=== PATIENT | female | born 2000 | race Caucasian/White ===

== ENCOUNTER 2021-06-21 15:38 | Outpatient (CLI) | payer OTHER, SELFPAY ==
--- NOTE | ~2021-06-21 | XR_ITS ---
EXAMINATION: XR chest 2V 06/21/2021 15:59 INDICATION: Cough and chest pain PROCEDURE: 2 view chest COMPARISON: 05/09/2019 FINDINGS: There are lingular infiltrates. The cardiomediastinal silhouette is within normal limits. There are no pleural effusions. There is no pneumothorax suspected. IMPRESSION: 1: Lingular infiltrates which may represent atelectasis or pneumonia. Reviewed, dictated and finalized at location A. E PRACTICAL
== END 2021-06-21 15:39 | disposition home or self-care (01) ==
LOC: CHSIMG 15:41
PROVIDERS: PCP Family Medicine; Visit Provider Family Medicine
DX: R05.9 Cough, unspecified (principal)
CPT/HCPCS: 71046

== ENCOUNTER 2022-07-15 09:48 | Outpatient (CLI) | payer OTHER, SELFPAY ==
--- NOTE | ~2022-07-15 | XR_ITS ---
EXAMINATION: XR abdomen obstructive series DATE: 07/15/2022 11:11 INDICATION: Generalized abdominal pain TECHNIQUE: Upright and supine views of the abdomen were obtained. COMPARISON: None. FINDINGS: The bowel gas pattern is nonspecific. No dilated loops of bowel or. There is no free intrap eritoneal gas. The visualized lung bases are clear. Asymmetric sacroiliitis is noted on the right.. IMPRESSION: 1. Nonobstructive bowel gas pattern Reviewed, dictated and finalized at location A. [employer]
[2022-07-15 10:30] LABS: Basophils Absolute Auto 0.04 K/mm3 (0.00-0.10); Basophils Percent Auto 0.4 % (0.0-1.0); Eosinophils Absolute Auto 0.06 K/mm3 (0.02-0.50); Eosinophils Percent Auto 0.7 % (1.0-6.0); Hemoglobin 15.2 g/dL (12.0-15.0); Immature Granulocyte Absolute 0.03 K/mm3 (0.00-0.00); Immature Granulocyte Percent A 0.3 % (0.0-0.0); Lymphocytes Absolute Auto 1.52 K/mm3 (1.10-4.50); Mean Corpuscular HGB Conc 35.3 g/dL (32.0-36.0); Mean Corpuscular Hemoglobin 30.6 pg (27.0-31.0); Mean Corpuscular Volume 86.7 fL (78.0-102.0); Mean Platelet Volume 11.9 fl (9.2-11.8); Monocytes Absolute Auto 0.28 K/mm3 (0.10-0.90); Monocytes Percent Auto 3.1 % (2.0-11.0); Neutrophils Percent Auto 78.5 % (50.0-70.0); Platelet Count Result 157 K/mm3 (150-420); Red Blood Count 4.96 M/mm3 (4.20-5.40); Red Cell Distribution Width 12.9 % (11.6-14.4)
[2022-07-15 10:36] LABS: Add Urine Microscopic? YES; Appearance Urine Clear (Clear); Bilirubin Urine Negative (Negative); Blood Urine 3+ (Negative); Color Urine Light Yellow (Yellow); Glucose Urine UA Negative (Negative); Ketones Urine Negative (Negative); Leukocyte Esterase Ur 2+ (Negative); Nitrate Urine Negative (Negative); Protein Urine Trace (Negative); Specific Grav Ur >= 1.030 (1.010-1.020); Urobilinogen Urine 0.2 mg/dL (0.2-1.0)
[2022-07-15 10:40] LABS: Pregnancy On Board Control Positive; Urine Pregnancy Test Negative
[2022-07-15 10:41] LABS: Occult Blood Negative (Negative)
[2022-07-15 10:44] LABS: Bacteria Urine 1+ /hpf; Squamous Epithelial Cell Urine Moderate /hpf (Few)
[2022-07-15 10:57] LABS: Alanine Aminotransferase 33 U/L (14-59); Albumin Level 4.5 g/dL (3.4-5.0); Alkaline Phosphatase 30 U/L (46-116); Amylase 76 U/L (25-115); Anion Gap 8 mmol/L (8-16); Aspartate Amino Transferase 20 U/L (15-37); Bilirubin,Total 0.5 mg/dL (0.00-1.00); Blood Urea Nitrogen 13 mg/dL (7-18); Calcium 9.2 mg/dL (8.5-10.1); Carbon Dioxide 28 mmol/L (21-32); Chloride 104 mmol/L (98-108); Estimated Glomerular Filt Rate > 60; Glucose 110 mg/dL (70-99); Lipase 94 U/L (73-393); Osmolality Calculated 291 mOsm/kg (285-295); Potassium 4.3 mmol/L (3.5-5.1); Sodium 140 mmol/L (136-145); Total Protein 7.6 g/dL (6.4-8.2)
[2022-07-15 11:10] LABS: Occult Blood Negative (Negative)
[2022-07-15 11:19] LABS: Occult Blood Negative (Negative)
[2022-07-19 17:17] LABS: Lactoferrin, Stool Negative (Negative)
[2022-07-19 17:17] LABS: Lactoferrin, Stool Negative (Negative)
[2022-07-20 04:58] LABS: Fecal Fat, Ql Normal (Normal)
[2022-07-20 04:58] LABS: Fecal Fat, Ql Normal (Normal)
[2022-07-20 16:45] LABS: Gliadin AB, IgG <1.0 U/mL (<15.0); TTG IGA AB <1.0 U/mL (<15.0)
[2022-07-20 22:54] LABS: ANCA Screen Negative (Negative); Myeloperoxidase Ab <1.0 AI (<1.0); Proteinase-3 Ab <1.0 AI (<1.0); S cerevisiae Ab (IgA) 4.5 U (<=20.0); S cerevisiae Ab (IgG) 13.2 U (<=20.0)
== END 2022-07-15 09:49 | disposition home or self-care (01) ==
LOC: CHSLAB 09:51
PROVIDERS: PCP Family Medicine; Visit Provider Family Medicine
DX: R10.9 Unspecified abdominal pain (principal)
CPT/HCPCS: 36415; 74019; 80053; 81001; 81025; 82150; 82272; 82705; 83516; 83630; 83690; 84376; 85025; 86036; 86255; 86671; 87045; 87177; 87209; 87269; 87272; 87324; 87427

== ENCOUNTER 2023-02-24 11:58 | Outpatient (CLI) | payer OTHER, SELFPAY ==
[2023-02-24 13:04] LABS: Basophils Absolute Auto 0.04 K/mm3 (0.00-0.10); Basophils Percent Auto 0.8 % (0.0-1.0); Eosinophils Absolute Auto 0.07 K/mm3 (0.02-0.50); Eosinophils Percent Auto 1.3 % (1.0-6.0); Hemoglobin 14.3 g/dL (12.0-15.0); Immature Granulocyte Absolute 0.02 K/mm3 (0.00-0.00); Immature Granulocyte Percent A 0.4 % (0.0-0.0); Lymphocytes Absolute Auto 1.62 K/mm3 (1.10-4.50); Lymphocytes Percent Auto 31.2 % (18.0-42.0); Mean Corpuscular HGB Conc 35.8 g/dL (32.0-36.0); Mean Corpuscular Hemoglobin 31.2 pg (27.0-31.0); Mean Corpuscular Volume 87.1 fL (78.0-102.0); Mean Platelet Volume 11.2 fl (9.2-11.8); Monocytes Absolute Auto 0.28 K/mm3 (0.10-0.90); Monocytes Percent Auto 5.4 % (2.0-11.0); Neutrophils Absolute Auto 3.2 K/mm3 (1.7-7.2); Neutrophils Percent Auto 60.9 % (50.0-70.0); Platelet Count Result 156 K/mm3 (150-420); Red Blood Count 4.59 M/mm3 (4.20-5.40); Red Cell Distribution Width 12.5 % (11.6-14.4); White Blood Count 5.2 K/mm3 (4.8-10.8)
[2023-02-24 13:43] LABS: Alanine Aminotransferase 32 U/L (14-59); Albumin Level 4.3 g/dL (3.4-5.0); Alkaline Phosphatase 25 U/L (46-116); Anion Gap 9 mmol/L (8-16); Aspartate Amino Transferase 14 U/L (15-37); Bilirubin,Total 0.6 mg/dL (0.00-1.00); Blood Urea Nitrogen 13 mg/dL (7-18); Calcium 9.1 mg/dL (8.5-10.1); Carbon Dioxide 28 mmol/L (21-32); Chloride 103 mmol/L (98-108); Estimated Glomerular Filt Rate > 60; Free T4 Free Thyroxine 0.92 ng/dL (0.76-1.46); Glucose 86 mg/dL (70-99); Osmolality Calculated 289 mOsm/kg (285-295); Potassium 4.1 mmol/L (3.5-5.1); Sodium 140 mmol/L (136-145); Thyroid Stimulating Hormone 1.64 uIU/mL (0.36-3.74); Total Protein 7.3 g/dL (6.4-8.2)
== END 2023-02-24 11:59 | disposition home or self-care (01) ==
LOC: CHSLAB 12:00
PROVIDERS: PCP Family Medicine; Visit Provider Nurse Practitioner Family
DX: R19.7 Diarrhea, unspecified (principal)
CPT/HCPCS: 36415; 80053; 84439; 84443; 85025

== ENCOUNTER 2023-02-25 09:50 | Outpatient (CLI) | payer OTHER, SELFPAY | END 2023-02-25 09:51 | disposition home or self-care (01) | PROVIDERS: PCP Family Medicine; Visit Provider Nurse Practitioner Family | DX: R19.7 Diarrhea, unspecified (principal) | CPT/HCPCS: 84376; 87045; 87177; 87209; 87324; 87427; 87449 ==

== ENCOUNTER 2023-08-28 11:42 | Outpatient (CLI) | payer OTHER, SELFPAY ==
[2023-08-28 12:00] LABS: Basophils Absolute Auto 0.06 K/mm3 (0.00-0.10); Basophils Percent Auto 1.1 % (0.0-1.0); Eosinophils Absolute Auto 0.11 K/mm3 (0.02-0.50); Hematocrit 42.5 % (35.0-49.0); Hemoglobin 14.5 g/dL (12.0-15.0); Immature Granulocyte Absolute 0.01 K/mm3 (0.00-0.00); Immature Granulocyte Percent A 0.2 % (0.0-0.0); Lymphocytes Absolute Auto 1.77 K/mm3 (1.10-4.50); Lymphocytes Percent Auto 31.8 % (18.0-42.0); Mean Corpuscular HGB Conc 34.1 g/dL (32.0-36.0); Mean Corpuscular Hemoglobin 29.7 pg (27.0-31.0); Mean Corpuscular Volume 87.1 fL (78.0-102.0); Monocytes Absolute Auto 0.32 K/mm3 (0.10-0.90); Monocytes Percent Auto 5.7 % (2.0-11.0); Neutrophils Absolute Auto 3.3 K/mm3 (1.7-7.2); Neutrophils Percent Auto 59.2 % (50.0-70.0); Platelet Count Result 167 K/mm3 (150-420); Red Blood Count 4.88 M/mm3 (4.20-5.40); Red Cell Distribution Width 12.9 % (11.6-14.4); White Blood Count 5.6 K/mm3 (4.8-10.8)
[2023-08-28 12:01] LABS: Appearance Urine Clear (Clear); Bilirubin Urine Negative (Negative); Blood Urine 3+ (Negative); Color Urine Light Yellow (Yellow); Glucose Urine UA Negative (Negative); Ketones Urine Negative (Negative); Leukocyte Esterase Ur Negative LEU/UL (Negative); Nitrate Urine Negative (Negative); Protein Urine Negative (Negative); Specific Grav Ur >= 1.030 (1.010-1.020); Urobilinogen Urine 0.2 mg/dL (0.2-1.0)
[2023-08-28 12:09] LABS: Add Urine Microscopic? YES; RBC Urine 0-2 /hpf (0-2); Squamous Epithelial Cell Urine Few /hpf (Few); WBC Urine None seen /hpf (0-3)
[2023-08-28 12:10] LABS: Bacteria Urine Trace /hpf
[2023-08-28 13:11] LABS: Alanine Aminotransferase 31 U/L (14-59); Albumin Level 4.1 g/dL (3.4-5.0); Alkaline Phosphatase 29 U/L (46-116); Amylase 71 U/L (25-115); Anion Gap 8 mmol/L (8-16); Aspartate Amino Transferase 13 U/L (15-37); Bilirubin,Total 0.4 mg/dL (0.00-1.00); Blood Urea Nitrogen 11 mg/dL (7-18); Calcium 9.3 mg/dL (8.5-10.1); Carbon Dioxide 29 mmol/L (21-32); Chloride 104 mmol/L (98-108); Estimated Glomerular Filt Rate > 60; Glucose 89 mg/dL (70-99); Osmolality Calculated 290 mOsm/kg (285-295); Potassium 4.3 mmol/L (3.5-5.1); Sodium 141 mmol/L (136-145); Total Protein 7.3 g/dL (6.4-8.2)
== END 2023-08-28 11:43 | disposition home or self-care (01) ==
LOC: CHSLAB 11:45
PROVIDERS: PCP Family Medicine; Visit Provider Family Medicine
DX: R10.11 Right upper quadrant pain (principal); R19.7 Diarrhea, unspecified
CPT/HCPCS: 36415; 80053; 81001; 82150; 85025; 87493

== ENCOUNTER 2023-08-29 10:20 | Outpatient (CLI) | payer OTHER, SELFPAY ==
[2023-08-29 11:24] LABS: Toxigenic C. Diff NEGATIVE (NEGATIVE)
== END 2023-08-29 10:21 | disposition home or self-care (01) ==
PROVIDERS: PCP Family Medicine; Visit Provider Family Medicine
DX: R10.11 Right upper quadrant pain (principal); R19.7 Diarrhea, unspecified
CPT/HCPCS: 87493

== ENCOUNTER 2025-02-08 09:34 | Outpatient (RCR) | payer BC, MEDICAID, SELFPAY ==
[2025-02-08 10:09] VITALS: BP 147/85; PULSE 86
== END 2025-03-27 13:32 | disposition other institution (70) ==
LOC: ANHOBOP 09:34
PROVIDERS: PCP Family Medicine; Visit Provider Obstetrics & Gynecology
DX: O36.8130 Decreased fetal movements, third trimester, not applicable or unspecified (principal); Z3A.35 35 weeks gestation of pregnancy
CPT/HCPCS: 59025

== ENCOUNTER 2025-02-13 10:51 | Outpatient (CLI) | payer BC, MEDICAID, SELFPAY ==
[2025-02-13] VITALS (16 sets, daily range): BP systolic 128–146; BP diastolic 71–80; PULSE 81–88; O2SAT 98–100
--- OUTSIDE RECORDS SUMMARY | 2025-02-13 11:25 | XMS_ITS | Continuity of Care Document ---
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 Plan of Treatment Reminders Order Date Submit Date Provider Last Modified By Organization Details Last Modified Time Details Appointments U/S OB GROWTH 2024 09:30A M ULTRASOUND Not available Not available Not available OB ROUTINE 2024 10:00A Corina WASHBURN MD Not available Not available Not available INDUCTI ON 2024 12:01A Corina TEJEDA MD Not available Not available Not available Lab None recorde d. Referral None recorde d. Procedures None recorde d. Surgeries None recorde d. Imaging US, obstetr ic, follow- up 2024 025 [email or web address] [place], [address], [place], [address], 02/13/2025 11:19:51 Medication Orders None recorde d. Patient TargetsNo targets recorded. Patient InstructionsNo instructions recorded. Reason for Referral None Reported. Results Created Date Observation Date Name Description Value Unit Range Abnormal Flag Note LastModifiedBy Organization Detail LastModifiedTime 10/10/1910/09/2024 , rashid akbar No observ ation record ed. [facility] (Radiology) [address], [place], [address], 10/09/2024 17:22:59 10/30/19 25 10/29/2024 US, obste tric, 2nd or 3rd trime ster No observ ation record ed. [facility] [address], [place], [address], 10/29/2024 14:13:54 10/30/19 25 10/29/2024 US, obste tric, 2nd or 3rd trime ster No observ ation record ed. [email or web address], [place], [address], 10/31/2024 20:03:53 11/20/19 25 11/19/2024 US, obste tric, follo w-up No observ ation record ed. [address] [place] [address] [address], [place], [address], 11/19/2024 14:47:04 11/20/19 25 11/19/2024 US, obste tric, follo w-up No observ ation record ed. BAM [address], [place], [address], 12/04/2024 09:14:42 12/18/19 25 12/17/2024 US, obste tric, follo w-up No observ ation record ed. [email or web address] [place] [address], [place], [address], 12/19/2024 17:30:07 12/18/19 25 12/17/2024 US, obste tric, follo w-up No observ ation record ed. [email or web address] [address], [place], [address], 12/26/2024 12:13:51 12/31/19 25 12/30/2024 US, obste tric, limit ed No observ ation record ed. [email or web address] [place] [address], [place], [address], 12/30/2024 18:41:24 12/31/19 25 12/30/2024 US, obste tric, follo w-up No observ ation record ed. [email or web address] [address], [place], [address], 01/06/2025 18:01:25 01/14/20 25 01/13/2025 US, obste tric, follo w-up No observ ation record ed. [email or web address] [place] [address], [place], [address], 01/13/2025 17:53:49 01/14/2001/13/2025 US, obste tric, follo w-up No observ ation record ed. [email or web address] [address], [place], [address], 01/16/2025 10:30:30 02/09/20 25 02/08/2025 imagi ng/di agnos tic resul t No observ ation record ed. [facility] [address], [place], [address], 02/09/2025 18:44:19 02/14/20 US, obste tric, follo w-up No observ ation record ed. [email or web address] [place] [address], [place], [address], 02/13/2025 11:15:03 02/14/2002/13/2025 US, obste tric, follo w-up No observ ation record ed. [email or web address], [place], [address], 02/13/2025 11:19:49 Result Notes None recorded. Problems Name Problem SNOMED Code Status Onset Date Resolution Date Notes Provider Name and Address Organization Details Recorded Time Past pregnanc y history of pre-ecla mpsia 63465376675 9100 Active without severe features, delivered at 37 weeks; ASA ppx URSULA TEJEDA MD [address], [place], [address], [place] [facility] 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 5 20:03:12 Bicornua te uterus 33283569 Active serial growth Uyen Jerry [facility], [facility] 5 20:03:18 Bicornua te uterus 08206643 Active serial growth Uyen Jerry [facility], [facility] 5 20:03:19 Pregnanc y 11661106 Active 2024 Rayna Guan null, [facility] 5 15:20:50 Problem Notes None recorded. Medical Equipment None Reported. Allergies No known drug allergies Medications Name Sig Start Date Stop Date Status Note LastModified by Organization Details LastModified Time clobetasol 0.05 % topical cream APPLY A THIN LAYER TO THE AFFECTED AREA(S) BY TOPICAL ROUTE 2 TIMES PER DAY 2024 active Not Available Not Available Not Avai lable levothyroxi ne 25 mcg tablet TAKE 1 TABLET BY MOUTH ONCE DAILY DIRECTED active Not Available Not Available No t Available Aspirin Low Strength 81 mg chewable tablet 2 tablets every day by oral route. 2024 active Not Available Not Available Not Avai lable cephalexin 500 mg capsule TAKE 1 CAPSULE BY MOUTH THREE TIMES DAILY FOR 4 DAYS 10/01 completed Not Available Not Available Not Available active Not Available Not Avai lable Not Available Vitals Date Recorded Body weight Systolic And Diastolic Systolic And Diastolic Provider Name and Address Organization Details Last Updated DateTime 02/13/2025 648780.690 88 g 168/94 mm[Hg] 176/100 mm[Hg] Colleen Lambertt [facility] 02/13/2025 11:38:00 Social History Question Answer Notes LastModified by Organizat ion Details LastModified Time Tobacco Smoking Status Former Smoker Rayna Guan quique, [facility] 08/07/2024 11:00:58 Do You Have An Advance Directive? No [email or web address] Information not available 10/01/2024 Are You Blind Or Do You Have Difficulty Seeing? No Information not available 08/07/2024 What Is Your Level Of Caffeine Consumption? Occasional [email or web address] Information not available 10/01/2024 How Much Tobacco Do You Chew? None Information not available 10/01/2024 In The 14 Days Before Symptom Onset, Have You Had Close Contact With A Laboratory-confir med COVID-19 While That Case Was Ill? No Information not available 08/07/2024 In The 14 Days Before Symptom Onset, Have You Had Close Contact With A Person Who Is Under Investigation For COVID-19 While That Person Was Ill? No [email or web address] Information not available 08/07/2024 Have You Been To An Area Known To Be High Risk For COVID-19? No [email or web address] Information not available 08/07/2024 Are You Deaf Or Do You Have Serious Difficulty Hearing? No [email or web address] Information not available 08/07/2024 What Type Of Diet Are You Following? REGULAR [email or web address] Information not available 10/01/2024 What Is The Highest Grade Or Level Of School You Have Completed Or The Highest Degree You Have Received? PW20822-7 [email or web address] Information not available 10/01/2024 Are There Any Guns Present In Your Home? No [email or web address] Information not available 10/01/2024 Do You Use Protection During Sex? No [email or web address] Information not available 10/01/2024 Do You Use Your Seat Belt Or Car Seat Routinely? Yes [email or web address] Information not available 08/07/2024 Do You Have Smoke And Carbon Monoxide Detectors In Your Home? Yes [email or web address] Information not available 08/07/2024 How Much Tobacco Do You Smoke? No [email or web address] Information not available 10/01/2024 Do You Use Sunscreen Routinely? Yes [email or web address] Information not available 08/07/2024 Have You Used IV Drugs? No [email or web address] Information not available 10/01/2024 Do You Have Difficulty Walking Or Climbing Stairs? No [email or web address] Information not available 08/07/2024 Sex: Unknown Functional Status Question Answer Note LastModified by Organizat ion Details LastModified Time Do you use any illicit or recreational drugs? No [email or web address] Information not available 08/07/2024 What is your level of alcohol consumption? None [email or web address] Information not available 10/01/2024 Are you able to walk? YESWOREST [email or web address] Information not available 08/07/2024 Are you able to care for yourself? 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 No [email or web address] Information not available 08/07/2024 What is your exercise level? Moderate [email or web address] Information not available 10/01/2024 Mental Status Question Answer Note LastModified by Organization D etails LastModified Time Do you feel stressed (tense, restless, nervous, or anxious, or unable to sleep at night)? [id number] [email or web address] Information not available 10/01/2024 Family History Relationship Description Onset Age of this Age Resolved Age Notes LastModified by Organization Details LastModified Time Mother Hypertensive disorder [email or web address] Not available 2024 10:34:19 Maternal Grandfather Malignant neoplasm of lung [email or web address] Not available 01/28 10:23:00 Medical History Condition Response Allergies (Food, seasonal, environmental ) N Other N Drug/Latex Allergies/Reactions N Blood Transfusion N Breast Cancer N Dermatologic Disorders N Lung Disease N Defects or Inherited Disease N Breast Problem N Gestational Diabetes N Hematologic disorders N Anesthesia Complications N History of STI N Deep Vein Thrombosis N Polycystic ovary syndrome N Anxiety Disorder N Autoimmune disease N Arthritis N Polyps N Infertility N Acid Reflux (GERD) N History of abnormal pap N Cancer N Varicosities N Stroke N Neurologic/Epilepsy N Endometriosis N High Cholesterol N Fibromyalgia N Headaches N Kidney Disease N Heart Problems N Thyroid Problems N Kidney or Bladder Problems N GI Problems N Eating Disorder N Anemia N Art (IVF or FET) N Psychiatric Illness N Ovarian Cancer N Diabetes N Pulmonary (TB, Asthma) N Hepatitis/Liver Disease N No Past Medical History N Eczema N Urinary Tract Infection N Abuse/Domestic Violence N Asthma N Trauma/Violence N Depression/ depression N Heart Disease N Pre-Eclampsia N Hypertension N Osteoporosis N Thrombophilias N Gynecological History Statement/Question Response Abnormal Pap N Flow Moderate Date of LMP 06/04/2024 On BCP's at Conception? N N Was last menstrual period normal Y STIs/STDs Y HPV Vaccine Y Duration of Flow (days) 5 Current Control Method Age at First Child 20 Are cycles usually normal Y Frequency of Cycle (Q days) 20 Sexually Active? Y Menses Monthly Y Age of first menstrual cycle 15 Date of Last Pap Smear Sexual Problems? N LMP Approximate N Obstetrics History GPAL:G 2 P 1 0 0 1 Type Value Full Term 1 Living 1 Total 2 Past Encounters Encounter ID Performer Location Encounter Start Date Encounter Closed Date Diagnosis/Indication Diagnosis SNOMED-CT Code Diagnosis ICD10 Code Diagnosis Note [id number] URSULA TEJEDA MD [place] [address] [place] [address] 01/15/2025 11:50:37 01/15/2025 13:24:17 Hypertension complicating 6693751698 9102 O16.9 Large for gestation age fetus 830988131 O36.60X0 Gestation period, 32 weeks 0069711 Z3A.32 [id number] URSULA TEJEDA MD [place] [address] [place] [address] 01/22/2025 09:05:42 01/22/2025 14:47:33 Premature uterine contraction 548310733 O47.00 [id number] URSULA TEJEDA MD [place] [address] [place] [address] 02/05/2025 10:07:57 02/05/2025 10:52:28 Marginal insertion of umbilical cord 69827067 O43.129 Gestation period, 35 weeks 42163555 Z3A.35 [id number] Abimael Washburn MD [place] [address],[facility] [place] [address] 02/13/2025 10:22:28 02/13/2025 11:19:51 Anomaly of placenta 95038728 O43.103 O34.03 O99.283 Z3A.36 Health Concerns Section Related Observation LastModified by Organization Detai ls LastModified Time None Recorded Concern Status LastModified by Organization Details LastModified Time None Recorded Payers Encounter Date Sequence Insurance Name Policy Number Policy Le Covered Member ID Le Member ID Guarantor Name 02/13/2025 1 [place] [id number] [place] [id number] [place] 02/13/2025 2 [place] [facility] [place] [employer] [id number] [place] [facility] Episode Ob Episode Information Episode Created Date Number of Fetuses Patient Bloodtype Patient rh Status Prepregnancy Weight lbs Domestic Partner Domestic Partner Phone Father Name Video Camera Operator Status 09/04/19 25 1 O Positive 182 Myke Kindern ay OPEN Fetus Data First Name Last Name Admitted to NICU Weight (g) Sex Living Outcome Pediatric Complications Fetus ID Race Codes Race Delivery Type [id number] Problems Problem Notes Problem Name Start Date End Date Resolution Snomed Code Not e Hypothyroidism in 409253908 25mcg Levothyroxine repeat labs 4wks Marginal insertion of umbilical cord 31068588 serial hemalatha wth Bicornuate uterus 40349823 se rial growth Past history of pre-eclampsia 489687417266700 without sev ere features, delivered at 37 weeks; ASA ppx Kasi Calculation Initial Kasi Date Initial Exam Date Initial Exam Provider Initial Ultrasound Date Last Menstrual Period Date Ultra Sound Weeks Gestation 03/11/2025 09/04/2024 08/07/2024 06/04/2024 9 Eighteen To Twenty Week Kasi Update Ultra Sound Date Fundal Height At Umbil Quickening Date Ultra Sound Latest Weeks Gestation Final Kasi Confirmed By Final Kasi Confirmed Date Final Kasi Date Ultra Sound Latest Days Gestation 0 [email or web address] 09/04/2024 03/11/20 25 0 Pre-merlene Flowsheet Flowsheet Date 09/04/2024 Dasilva Score Blood Edema Fundus Height Fundus Units Glucose Ketones Leukocytes Nitrite Labor Signs Protein Cervic Dilation Cervic Effacement Cervic Station Type Weight in lbs Pre/Post Dialysis Refused Weight 182.297146479651 BP Diastolic BP Location Tested BP Systolic BP Type 82 L arm 139 sitting Fetus Heart Rate Present A Present Fetus Movement Comments Patient presents to [facility]. Hx of preeclampsia without severe features in her G1 , induced at 37 weeks. Discussed ASA ppx at previous visit. otherwise uncomplicated. No nausea or cramping. NT/NB wnl today, desires NIPT. Will draw today with new OB labs. RTC 4 weeks for routine care. Flowsheet Date 10/01/2024 Dasilva Score Blood Edema Fundus Height Fundus Units Glucose Ketones Leukocytes Nitrite Labor Signs Protein Cervic Dilation Cervic Effacement Cervic Station neg none Type Weight in lbs Pre/Post Dialysis Refused Weight 185.052114795407 BP Diastolic BP Location Tested BP Systolic BP Type 61 L arm 123 sitting Fetus Heart Rate Present A 150 Fetus Movement A No Comments Doing well, no cramping or b leeding. Noticed L axillary lump on 09/20, wasn't painful at first but now having pain with movement and palpation. No drainage or bleeding. No episodes previously similar to this. Exam consistent with accessory breast tissue, will order US to evaluate. LR female NIPT! Other labs wnl aside from elevated TSH for . Started on levothyroxine, repeat at next visit. Discussed anatomy US for next visit. RTC 3-4 weeks. Flowsheet Date 10/29/2024 Dasilva Score Blood Edema Fundus Height Fundus Units Glucose Ketones Leukocytes Nitrite Labor Signs Protein Cervic Dilation Cervic Effacement Cervic Station Type Weight in lbs Pre/Post Dialysis Refused BP Diastolic BP Location Tested BP Systolic BP Type Fetus Heart Rate Present Fetus Movement Comments Flowsheet Date 10/29/2024 Dasilva Score Blood Edema Fundus Height Fundus Units Glucose Ketones Leukocytes Nitrite Labor Signs Protein Cervic Dilation Cervic Effacement Cervic Station neg none Type Weight in lbs Pre/Post Dialysis Refused 187.111650455716 BP Diastolic BP Location Tested BP Systolic BP Type 72 L arm 122 sitting Fetus Heart Rate Present A Present Fetus Movement A No Comments Good movement. No blee ding or cramping. Mild back pain, discussed symptomatic relief. Anatomy today, EFW 97%. Marginal cord insertion, discussed with patient. Plan for q4week growth US. Anatomy incomplete, need 4CH, AA, RVOT. RTC 4 weeks. Flowsheet Date 11/19/2024 Dasilva Score Blood Edema Fundus Height Fundus Units Glucose Ketones Leukocytes Nitrite Labor Signs Protein Cervic Dilation Cervic Effacement Cervic Station Type Weight in lbs Pre/Post Dialysis Refused BP Diastolic BP Location Tested BP Systolic BP Type Fetus Heart Rate Present Fetus Movement Comments Flowsheet Date 11/21/2024 Dasilva Score Blood Edema Fundus Height Fundus Units Glucose Ketones Leukocytes Nitrite Labor Signs Protein Cervic Dilation Cervic Effacement Cervic Station Type Weight in lbs Pre/Post Dialysis Refused Weight 198.663205857586 BP Diastolic BP Location Tested BP Systolic BP Type 75 L arm 118 sitting Fetus Heart Rate Present A 144 Present Fetus Movement A Yes Comments no complaints, no problems, routine care, no contractions, no vaginal bleeding, no loss of fluid, no cramping Flowsheet Date 12/17/2024 Dasilva Score Blood Edema Fundus Height Fundus Units Glucose Ketones Leukocytes Nitrite Labor Signs Protein Cervic Dilation Cervic Effacement Cervic Station Type Weight in lbs Pre/Post Dialysis Refused BP Diastolic BP Location Tested BP Systolic BP Type Fetus Heart Rate Present Fetus Movement Comments Flowsheet Date 12/17/2024 Dasilva Score Blood Edema Fundus Height Fundus Units Glucose Ketones Leukocytes Nitrite Labor Signs Protein Cervic Dilation Cervic Effacement Cervic Station Type Weight in lbs Pre/Post Dialysis Refused 201.609716466736 BP Diastolic BP Location Tested BP Systolic BP Type 79 L arm 128 sitting Fetus Heart Rate Present A 145 Fetus Movement A Yes Comments no complaints, no problems, routine care, no contractions, no vaginal bleeding, no loss of fluid, no cramping Flowsheet Date 12/30/2024 Dasilva Score Blood Edema Fundus Height Fundus Units Glucose Ketones Leukocytes Nitrite Labor Signs Protein Cervic Dilation Cervic Effacement Cervic Station Type Weight in lbs Pre/Post Dialysis Refused BP Diastolic BP Location Tested BP Systolic BP Type Fetus Heart Rate Present Fetus Movement Comments Flowsheet Date 01/03/2025 Dasilva Score Blood Edema Fundus Height Fundus Units Glucose Ketones Leukocytes Nitrite Labor Signs Protein Cervic Dilation Cervic Effacement Cervic Station Type Weight in lbs Pre/Post Dialysis Refused 209.443741525250 BP Diastolic BP Location Tested BP Systolic BP Type 80 L arm 121 sitting Fetus Heart Rate Present A 158 Present Fetus Movement A Yes Comments no complaints, no problems, routine care, no contractions, no vaginal bleeding, no loss of fluid, no cramping Flowsheet Date 01/13/2025 Dasilva Score Blood Edema Fundus Height Fundus Units Glucose Ketones Leukocytes Nitrite Labor Signs Protein Cervic Dilation Cervic Effacement Cervic Station Type Weight in lbs Pre/Post Dialysis Refused BP Diastolic BP Location Tested BP Systolic BP Type Fetus Heart Rate Present Fetus Movement Comments Flowsheet Date 01/15/2025 Dasilva Score Blood Edema Fundus Height Fundus Units Glucose Ketones Leukocytes Nitrite Labor Signs Protein Cervic Dilation Cervic Effacement Cervic Station Type Weight in lbs Pre/Post Dialysis Refused Weight 210.738605617211 BP Diastolic BP Location Tested BP Systolic BP Type 85 L arm 147 sitting Fetus Heart Rate Present A 135 Fetus Movement A Yes Comments Good movement. No cram ping or bleeding. BP elevated today, asymptomatic. hx of preeclampsia in her last . Will check labs today. EFW 94%, AC 99%. Recheck in 4 weeks. Discussed tdap vaccine and preadmission. RTC 2 weeks. Flowsheet Date 01/22/2025 Dasilva Score Blood Edema Fundus Height Fundus Units Glucose Ketones Leukocytes Nitrite Labor Signs Protein Cervic Dilation Cervic Effacement Cervic Station Type Weight in lbs Pre/Post Dialysis Refused 214.723725520311 BP Diastolic BP Location Tested BP Systolic BP Type 77 L arm 128 sitting Fetus Heart Rate Present A 150 Fetus Movement A Yes Comments Problem visit. Patient prese nts for follow up of contractions. Had painful contractions yesterday, went to ER and received procardia and terb. Contractions stopped, no further contractions today. SVE closed per ER exam. Discussed return precautions. Flowsheet Date 02/05/2025 Dasilva Score Blood Edema Fundus Height Fundus Units Glucose Ketones Leukocytes Nitrite Labor Signs Protein Cervic Dilation Cervic Effacement Cervic Station neg none Type Weight in lbs Pre/Post Dialysis Refused Weight 219.447547886318 BP Diastolic BP Location Tested BP Systolic BP Type 82 L arm 139 sitting Fetus Heart Rate Present A 155 Fetus Movement A Yes Comments Good movement. No regu lar contractions. No bleeding or LOF. Would like EIL on 03/04. GBS collected today. SVE closed. RTC 1 week, repeat growth US. Flowsheet Date 02/13/2025 Dasilva Score Blood Edema Fundus Height Fundus Units Glucose Ketones Leukocytes Nitrite Labor Signs Protein Cervic Dilation Cervic Effacement Cervic Station Type Weight in lbs Pre/Post Dialysis Refused BP Diastolic BP Location Tested BP Systolic BP Type Fetus Heart Rate Present Fetus Movement Comments Flowsheet Date 02/13/2025 Dasilva Score Blood Edema Fundus Height Fundus Units Glucose Ketones Leukocytes Nitrite Labor Signs Protein Cervic Dilation Cervic Effacement Cervic Station Type Weight in lbs Pre/Post Dialysis Refused 224.312501575492 BP Diastolic BP Location Tested BP Systolic BP Type 94 L arm 168 sitting 100 R arm 176 sitting Fetus Heart Rate Present Fetus Movement A Yes Comments Menstrual History Last Menstrual Date Menses Monthly On Bcp Conception Prior Menses Frequency Hcg Plus Date Menarche Onset Age 1106/04/2024 true Delivery Information Delivery Date Delivery Type Labor Anesthesia Weeks Gestation Incision Type Labor Labor Length Hrs Delivered By Post Complications Tubal Sterilization Discharge Date Comments Discharge Information Feeding Method Contraceptive Method Maternal HG B and HCT Levels
--- OUTSIDE RECORDS SUMMARY | 2025-02-13 11:25 | XMS_ITS | Data Portability ---
Author Organization [facility] [place] Address [address] [place] [address] [place] [address] Care Team Providers Care Customs Compliance Specialist Name Role Phone CHRISTOPHER SILVESTRE Primary Care Provider [phone] Assessment No assessment recorded. Plan of Treatment Reminders Order Date Submit Date Provider Last Modified By Organization Details Last Modified Time Details Appointments U/S OB GROWTH 2024 09:30A M ULTRASOUND Not available Not available Not available OB ROUTINE 2024 10:00A Corina GODWIN MD Not available Not available Not available INDUCTI ON 2024 12:01A Corina TEJEDA MD Not available Not available Not available Lab unliste d lab - CMP/CBC /uric acid 2024 025 [facility] (Lab), [address] [facility], [place], [address], 01/16/2025 03:20:10 Referral None recorde d. Procedures None recorde d. Surgeries None recorde d. Imaging US, obstetr ic, follow- up 2024 025 [email or web address] [address], [address], [place], [address], 02/13/2025 11:19:51 Medication Orders None recorde d. Patient TargetsNo targets recorded. Patient InstructionsNo instructions recorded. Reason for Referral None Reported. Results Created Date Observation Date Name Description Value Unit Range Abnormal Flag Note LastModifiedBy Organization Detail LastModifiedTime 12/18/1912/17/2024 HEMOG LOBIN (HGB) HGB 12.9 g/dL (based on docume nted legal sex) 11.6-1 5.4 Not Available [facility] (Lab) [address] [place], [address], 12/18/2024 14:09:50 12/18/19 25 12/17/2024 HEMAT OCRIT (HCT) HCT 38.3 % (based on docume nted legal sex) 34.0-4 5.0 Not Available [facility] (Lab) [address] [facility], [place], [address], 12/18/2024 14:09:50 12/18/19 25 12/17/2024 GTT - GESTA JENNA L HECTOR Nath, ACOG OB glucose, 1 hour screen 94 mg/dL 70-135 Not Available [facility] (Lab) [address] [place], [address], 12/18/2024 14:09:51 12/18/19 25 12/17/2024 HIV 1/2 ANTIG EN/AN TIBOD Y, REFLE X CONFI RMATI ON HIV antigen/anti body Nonrea ctive nonrea ctive HIV-1 antig en and HIV-1 /HIV- 2 antib odies were not detec pola. No labor atory evide nce of HIV infec tion. Not Available [facility] (Lab) [address] [place], [address], 12/18/2024 14:09:52 12/18/19 25 12/17/2024 RPR SCREE N, REFLE X TITER /CONF IRMAT ION RPR qualitative Nonrea ctive nonrea ctive Not Available [facility] (Lab) [address] [place], [address], 12/18/2024 14:09:52 01/16/20 25 01/15/2025 CMP/C BC/UR IC ACID uric acid 3.6 mg/dL 2.3-6. 6 Not Available [facility] (Lab) [address] [place], [address], 01/16/2025 03:20:09 01/16/20 25 01/15/2025 CMP/C BC/UR IC ACID sodium 136 mmol/ L 133-14 6 Not Available [facility] (Lab) [address] [facility], [place], [address], 01/16/2025 03:20:09 01/16/20 25 01/15/2025 CMP/C BC/UR IC ACID potassium 4.2 mmol/ L 3.5-5. 1 Not Available [facility] (Lab) [address] [facility], [place], [address], 01/16/2025 03:20:09 01/16/20 25 01/15/2025 CMP/C BC/UR IC ACID chloride 102 mmol/ L 98-107 Not Available [facility] (Lab) [address] [facility], [place], [address], 01/16/2025 03:20:09 01/16/20 25 01/15/2025 CMP/C BC/UR IC ACID carbon dioxide 29 mmol/ L 21-31 Not Available [facility] (Lab) [address] [place], [address], 01/16/2025 03:20:09 01/16/20 25 01/15/2025 CMP/C BC/UR IC ACID anion gap 5 mmol/ L 4-13 Not Available [facility] (Lab) [address] [place], [address], 01/16/2025 03:20:09 01/16/20 25 01/15/2025 CMP/C BC/UR IC ACID blood urea nitrogen 6 mg/dL 7-25 low Not Available [facility] (Lab) [address] [place], [address], 01/16/2025 03:20:09 01/16/20 25 01/15/2025 CMP/C BC/UR IC ACID creatinine 0.33 mg/dL 0.60-1 .30 low Not Available [facility] (Lab) [address] [facility], [place], [address], 01/16/2025 03:20:09 01/16/20 25 01/15/2025 CMP/C BC/UR IC ACID egfrcr (CKD-epi 2020) >90 mL/mi n/1.7 3_m2 >=60 Not Available [facility] (Lab) [address] [facility], [place], [address], 01/16/2025 03:20:09 01/16/20 25 01/15/2025 CMP/C BC/UR IC ACID calcium 9.3 mg/dL 8.3-10 .5 Not Available [facility] (Lab) [address] [facility], [place], [address], 01/16/2025 03:20:09 01/16/20 25 01/15/2025 CMP/C BC/UR IC ACID glucose 66 mg/dL 70-100 low Not Available [facility] (Lab) [address] [facility], [place], [address], 01/16/2025 03:20:09 01/16/2001/15/2025 CMP/C BC/UR IC ACID protein, total 6.5 g/dL 6.4-8. 3 Not Available [facility] (Lab) [address] [facility], [place], [address], 01/16/2025 03:20:09 01/16/20 25 01/15/2025 CMP/C BC/UR IC ACID albumin 3.8 g/dL 3.5-5. 0 Not Available [facility] (Lab) [address] [facility], [place], [address], 01/16/2025 03:20:09 01/16/2001/15/2025 CMP/C BC/UR IC ACID ALT 14 units /L 9-43 Not Available [facility] (Lab) [address] [place], [address], 01/16/2025 03:20:09 01/16/20 25 01/15/2025 CMP/C BC/UR IC ACID alkaline phosphatase 72 units /L 34-104 Not Available [facility] (Lab) [address] [place], [address], 01/16/2025 03:20:09 01/16/2001/15/2025 CMP/C BC/UR IC ACID AST 12 units /L 13-39 low Not Available [facility] (Lab) [address] [facility], [place], [address], 01/16/2025 03:20:09 01/16/2001/15/2025 CMP/C BC/UR IC ACID bilirubin, total 0.3 mg/dL 0.2-1. 2 Not Available [facility] (Lab) [address] [facility], [place], [address], 01/16/2025 03:20:09 01/16/2001/15/2025 CMP/C BC/UR IC ACID WBC 7.9 10'3/ uL 3.5-10 .5 Not Available [facility] (Lab) [address] [place], [address], 01/16/2025 03:20:09 01/16/20 25 01/15/2025 CMP/C BC/UR IC ACID RBC 4.52 10'6/ uL (based on docume nted legal sex) 3.80-5 .20 Not Available [facility] (Lab) [address] [place], [address], 01/16/2025 03:20:09 01/16/2001/15/2025 CMP/C BC/UR IC ACID HGB 13.0 g/dL (based on docume nted legal sex) 11.6-1 5.4 Not Available [facility] (Lab) [address] [place], [address], 01/16/2025 03:20:09 01/16/20 25 01/15/2025 CMP/C BC/UR IC ACID HCT 39.9 % (based on docume nted legal sex) 34.0-4 5.0 Not Available [facility] (Lab) [address] [place], [address], 01/16/2025 03:20:09 01/16/2001/15/2025 CMP/C BC/UR IC ACID MCV 88.3 fL 80.0-9 9.0 Not Available [facility] (Lab) [address] [place], [address], 01/16/2025 03:20:09 01/16/2001/15/2025 CMP/C BC/UR IC ACID MCH 28.8 pg 27.0-3 4.0 Not Available [facility] (Lab) [address] [facility], [place], [address], 01/16/2025 03:20:09 01/16/2001/15/2025 CMP/C BC/UR IC ACID MCHC 32.6 g/dL 32.0-3 5.5 Not Available [facility] (Lab) [address] [place], [address], 01/16/2025 03:20:09 01/16/2001/15/2025 CMP/C BC/UR IC ACID RDW 14.2 % 11.0-1 5.0 Not Available [facility] (Lab) [address] [place], [address], 01/16/2025 03:20:09 01/16/2001/15/2025 CMP/C BC/UR IC ACID plt 152 10'3/ uL 150-40 0 Not Available [facility] (Lab) [address] [place], [address], 01/16/2025 03:20:09 01/16/2001/15/2025 CMP/C BC/UR IC ACID MPV 12.4 fL 8.8-12 .1 high Not Available [facility] (Lab) [address] [place], [address], 01/16/2025 03:20:09 01/16/20 25 01/15/2025 CMP/C BC/UR IC ACID NRBC's 0.0 % 0.0 Not Available [facility] (Lab) [address] [facility], [place], [address], 01/16/2025 03:20:09 01/16/20 25 01/15/2025 CMP/C BC/UR IC ACID absolute NRBCs 0.0 10'3/ uL no refere nce range establ ished Not Available [facility] (Lab) [address] [facility], [place], [address], 01/16/2025 03:20:09 01/16/20 25 01/15/2025 CMP/C BC/UR IC ACID neutrophils 70.5 % 34.0-7 3.0 Not Available [facility] (Lab) [address] [facility], [place], [address], 01/16/2025 03:20:09 01/16/20 25 01/15/2025 CMP/C BC/UR IC ACID lymphocytes 18.6 % 15.0-5 0.0 Not Available [facility] (Lab) [address] [place], [address], 01/16/2025 03:20:09 01/16/20 25 01/15/2025 CMP/C BC/UR IC ACID monocytes 8.6 % 1.0-15 .0 Not Available [facility] (Lab) [address] [place], [address], 01/16/2025 03:20:09 01/16/20 25 01/15/2025 CMP/C BC/UR IC ACID eosinophils 1.5 % 0.0-8. 0 Not Available [facility] (Lab) [address] [place], [address], 01/16/2025 03:20:09 01/16/20 25 01/15/2025 CMP/C BC/UR IC ACID basophils 0.4 % 0.0-2. 0 Not Available [facility] (Lab) [address], [place], [address], 01/16/2025 03:20:09 01/16/2001/15/2025 CMP/C BC/UR IC ACID immature granulocytes 0.4 % no define d refere nce range Immat ure Granu locyt es (IG) repre sents autom ated enume ratio n of Metam yeloc ytes, Myelo cytes and Promy elocy bill when IG is < 5%. Blast s are not inclu ded in IG and repor pola separ ately if prese nt. Not Available [facility] (Lab) [address], [place], [address], 01/16/2025 03:20:09 01/16/2001/15/2025 CMP/C BC/UR IC ACID absolute neutrophils 5.6 10'3/ uL 1.5-8. 0 Not Available [facility] (Lab) [address], [place], [address], 01/16/2025 03:20:09 01/16/20 25 01/15/2025 CMP/C BC/UR IC ACID absolute lymphocytes 1.5 10'3/ uL 1.0-4. 0 Not Available [facility] (Lab) [address], [place], [address], 01/16/2025 03:20:09 01/16/2001/15/2025 CMP/C BC/UR IC ACID absolute monocytes 0.7 10'3/ uL 0.2-1. 0 Not Available [facility] (Lab) [address] [place], [address], 01/16/2025 03:20:09 01/16/20 25 01/15/2025 CMP/C BC/UR IC ACID absolute eosinophils 0.1 10'3/ uL 0.0-0. 6 Not Available [facility] (Lab) [address], [place], [address], 01/16/2025 03:20:09 01/16/20 25 01/15/2025 CMP/C BC/UR IC ACID absolute basophils 0.0 10'3/ uL 0.0-0. 3 Not Available [facility] (Lab) [address] [facility], [place], [address], 01/16/2025 03:20:09 01/16/20 25 01/15/2025 CMP/C BC/UR IC ACID absolute immature granulocytes 0.0 10'3/ uL 0.00-0 .10 Refer ence range s for nonbi nary/ inter sex or unspe cifie d gende r patie nts have not been estab lishe d. Pleas e [facility] for range s estab lishe d for cisge nder patie nts and evalu ate in the clini [place] xt of the indiv idual patie nt: https ://stacy baird book. nm.or g/gen derx Not Available [facility] (Lab) [address] [facility], [place], [address], 01/16/2025 03:20:09 02/06/2002/05/2025 CULTU RE: GROUP B STREP SCREE N, REFLE X SUSCE PTIBI LITY result report SEE RESULT S BELOW abnormal Test: Cultu re: Group B Strep , Refle x Susce ptibi lity ([facility] ) Speci men Sourc e: Vagin a/Rec tano Speci men Type: Vagin al/Re ctal Speci men Date: 025 1003 Resul t Date: 2024 1415 Resul t Statu s: Final resul t Abnor mal: Yes Resul ar Lab: [facility] [address] [facility] [address] Tel: CULTU RE ----- ----- ----- --- Posit ez for Strep tococ cus agala ctiae (Grou p B) (Abno rmal) Clind amyci n = resis tant, eryth romyc in = resis tant. Cefaz misty may be used for intra partu m proph ylaxi s in penic illin -shun rgic women at low risk, and Vanco mycin is recom lucia d for women at high risk for anaph ylaxi s. Jorge ptibi lity testi ng is not neces librado for these drugs . Not Available [facility] (Lab) [address], [place], [address], 02/10/2025 15:18:57 12/18/19 25 12/17/2024 US, obste tric, follo w-up No observ ation record ed. [email or web address] [address], [place], [address], 12/19/2024 17:30:07 12/18/19 25 12/17/2024 US, obste tric, follo w-up No observ ation record ed. [email or web address] [address], [place], [address], 12/26/2024 12:13:51 12/31/19 25 12/30/2024 US, obste tric, limit ed No observ ation record ed. [email or web address] [address], [place], [address], 12/30/2024 18:41:24 12/31/19 25 12/30/2024 US, obste tric, follo w-up No observ ation record ed. [email or web address] [address], [place], [address], 01/06/2025 18:01:25 01/14/20 25 01/13/2025 US, obste tric, follo w-up No observ ation record ed. [email or web address] [address], [place], [address], 01/13/2025 17:53:49 01/14/20 25 01/13/2025 US, obste tric, follo w-up No observ ation record ed. [email or web address] [address], [place], [address], 01/16/2025 10:30:30 02/09/20 25 02/08/2025 imagi ng/di agnos tic resul t No observ ation record ed. [facility] [address], [place], [address], 02/09/2025 18:44:19 02/14/20 US, obste tric, follo w-up No observ ation record ed. [email or web address] [address], [place], [address], 02/13/2025 11:15:03 02/14/20 25 02/13/2025 US, obste tric, follo w-up No observ ation record ed. [email or web address] [address], [place], [address], 02/13/2025 11:19:49 Result Notes None recorded. Problems Name Problem SNOMED Code Status Onset Date Resolution Date Notes Provider Name and Address Organization Details Recorded Time Past pregnanc y history of pre-ecla mpsia 65284286328 9100 Active without severe features, delivered at 37 weeks; ASA ppx URSULA TEJEDA MD [address], [place], [address], [place] [facility] 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 20:03:12 Bicornua te uterus 99139852 Active serial growth Uyen lei, [facility] 20:03:18 Bicornua te uterus 26083232 Active serial growth Uyen [facility], [facility] 20:03:19 Pregnanc y 40614275 Active 2024 Rayna Guan null, [facility] 15:20:50 Problem Notes None recorded. Medical Equipment [...] lable Not Available Vitals Date Recorded Body height Body mass index (BMI) Body weight Systolic And Diastolic Provider Name and Address Organization Details Last Updated DateTime 01/15/2025 167.64 cm 33.9 kg/m2 39301.4 g 147/85 mm[Hg] Le Mccollum [facility] 01/15/2025 11:58:05 Date Recorded Body weight Systolic And Diastolic Provider Name and Address Organization Details Last Updated DateTime 01/22/2025 02316.97585 g 128/77 mm[Hg] Le Mccollum [facility] 01/22/2025 09:19:52 Date Recorded Body height Body mass index (BMI) Body weight Systolic And Diastolic Provider Name and Address Organization Details Last Updated DateTime 02/05/2025 167.64 cm 35.3 kg/m2 88936.73 g 139/82 mm[Hg] APURVA Jean [facility] 02/05/2025 10:14:17 Date Recorded Body weight Systolic And Diastolic Systolic And Diastolic Provider Name and Address Organization Details Last Updated DateTime 02/13/2025 509858.690 88 g 168/94 mm[Hg] 176/100 mm[Hg] Colleen Phillips [facility] 02/13/2025 11:38:00 Social History Question Answer Notes LastModified by Organizat ion Details LastModified Time Tobacco Smoking Status Former Smoker Rayna lei, [facility] 08/07/2024 11:00:58 Do You Have An Advance Directive? No [email or web address] Information not available 10/01/2024 Are You Blind Or Do You Have Difficulty Seeing? No [email or web address] Information not available 08/07/2024 What Is Your Level Of Caffeine Consumption? Occasional [email or web address] Information not available 10/01/2024 How Much Tobacco Do You Chew? None [email or web address] Information not available 10/01/2024 In The 14 Days Before Symptom Onset, Have You Had Close Contact With A Laboratory-confir med COVID-19 While That Case Was Ill? No [email or web address] Information not available 08/07/2024 In The 14 Days Before Symptom Onset, Have You Had Close Contact With A Person Who Is Under Investigation For COVID-19 While That Person Was Ill? No [email or web address] Information not available 08/07/2024 Have You Been To An Area Known To Be High Risk For COVID-19? No [email or web address] Information not available 08/07/2024 Are You Deaf Or Do You Have Serious Difficulty Hearing? No [email or web address] Information not available 08/07/2024 What Type Of Diet Are You Following? REGULAR Information not available 10/01/2024 What Is The Highest Grade Or Level Of School You Have Completed Or The Highest Degree You Have Received? [id number] [email or web address] Information not available 10/01/2024 Are There Any Guns Present In Your Home? No [email or web address] Information not available 10/01/2024 Do You Use Protection During Sex? No [email or web address] Information not available 10/01/2024 Do You Use Your Seat Belt Or Car Seat Routinely? Yes [email or web address] Information not available 08/07/2024 Do You Have Smoke And Carbon Monoxide Detectors In Your Home? Yes [email or web address] Information not available 08/07/2024 How Much Tobacco Do You Smoke? No [email or web address] Information not available 10/01/2024 Do You Use Sunscreen Routinely? Yes [email or web address] Information not available 08/07/2024 Have You Used IV Drugs? No [email or web address] Information not available 10/01/2024 Do You Have Difficulty Walking Or Climbing Stairs? No [email or web address] Information not available 08/07/2024 Sex: Unknown Functional Status Question Answer Note LastModified by Organizat ion Details LastModified Time Do you use any illicit or recreational drugs? No [email or web address] Information not available 08/07/2024 What is your level of alcohol consumption? None [email or web address] Information not available 10/01/2024 Are you able to walk? YESWOREST [email or web address] Information not available 08/07/2024 Are you able to care for yourself? 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 No Information not available 08/07/2024 What is your exercise level? Moderate [email or web address] Information not available 10/01/2024 Mental Status Question Answer Note LastModified by Organization D etails LastModified Time Do you feel stressed (tense, restless, nervous, or anxious, or unable to sleep at night)? [id number] [email or web address] Information not available 10/01/2024 Family History Relationship Description Onset Age of this Age Resolved Age Notes LastModified by Organization Details LastModified Time Mother Hypertensive disorder [email or web address] Not available 2024 10:34:19 Maternal Grandfather Malignant neoplasm of lung [email or web address] Not available 01/28 10:23:00 Medical History Condition Response Allergies (Food, seasonal, environmental ) N Other N Breast Cancer N Drug/Latex Allergies/Reactions N Blood Transfusion N Dermatologic Disorders N Lung Disease N Defects or Inherited Disease N Breast Problem N Gestational Diabetes N Hematologic disorders N Anesthesia Complications N History of STI N Deep Vein Thrombosis N Polycystic ovary syndrome N Anxiety Disorder N Autoimmune disease N Arthritis N Infertility N Polyps N Acid Reflux (GERD) N History of abnormal pap N Cancer N Stroke N Varicosities N Neurologic/Epilepsy N Endometriosis N High Cholesterol N Headaches N Fibromyalgia N Kidney Disease N Heart Problems N Kidney or Bladder Problems N Thyroid Problems N GI Problems N Eating Disorder [...] SNOMED-CT Code Diagnosis ICD10 Code Diagnosis Note [id number] Abimael Godwin MD [facility] [address],[facility] [address] 08/07/2024 09:55:18 08/07/2024 10:57:17 [id number] URSULA TEJEDA MD [facility] [address],[facility] [address] 08/07/2024 09:57:37 08/07/2024 11:51:05 test positive 758495148 Z32.01 1. Exam today within normal limits.2. Ultrasound today confirms GA and viability. EDC . GC/Nam a testing done: will f/u as indicated. 4. ACOG guidelines and plan of care for reviewed with patient. All questions answered.5 . Return to office at 12 weeks for new OB visit6. Will need new OB labs at next visit.7. Genetic screening: declines. 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 procedure 14924437 Z31.430 Past pregn elizabeth history of pre-eclampsia 4315380546 23328 Z87.59 - without severe features, MIL at 37 weeks- discussed ASA 162mg daily for preeclamps ia PPX Gestation period, 13 weeks 97030574 Z3A.13 - continue PNV [id number] URSULA TEJEDA MD [facility] [address],[place] [address] 10/01/2024 13:46:18 10/01/2024 14:43:39 Lump in upper outer quadrant of left breast 8687304484 03931 N63.21 - likely accessory breast tissue- breast US ordered to evaluate Past pregn elizbaeth history of pre-eclampsia 8950615873 20434 Z87.59 - without severe features, MIL at 37 weeks- discussed ASA 81mg daily for preeclamps ia PPX Subclinica l hypothyroidism 99333064 E02 - discussed subclinica l hypothyroi dism in , TSH 5 on new OB labs- recheck at 20 weeks Gestation period, 17 weeks 96930556 Z3A.17 [id number] Abimael Godwin MD [facility] [address],[place] [address] 10/29/2024 09:21:06 10/29/2024 10:38:53 screening for malformation 622348651 Z36.3 Z3A.21 [id number] URSULA TEJEDA MD [facility] [address],[place] [address] 10/29/2024 09:22:14 10/29/2024 14:18:02 Hypothyroidism in 373154210 E03.9 - levothyrox ine 25mcg- repeat TSH today Gestation period, 21 weeks 59000006 Z3A.21 - continue PNV [id number] MD Akosua Acosta [address],[place] [address] 11/19/2024 13:52:34 11/19/2024 15:19:23 Follow-up encounter 443517013 Z36.2 Z3A.24 [id number] MD Akosua Acosta [address],[place] [address] 11/21/2024 11:23:26 11/21/2024 12:25:12 care status 749529304 Z34.82 [id number] MD Akosua Acosta [address],[place] [address] 12/17/2024 09:18:24 12/17/2024 10:11:36 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 O34.03 Z3A.28 [id number] MD Akosua Acosta [address],[place] [address] 12/17/2024 09:18:39 12/17/2024 10:48:03 care status 977942964 Z34.83 [id number] MD Akosua Acosta [address],[place] [address] 12/30/2024 16:14:50 12/30/2024 16:58:08 Polyhydramnios 67946731 O40.3XX0 Z3A.29 [id number] MD Akosua Acosta [address],[place] [address] 01/03/2025 15:03:23 01/03/2025 15:54:11 Skin problem 444724843 O99.713 Hypothyroi dism in 050769300 E03.9 [id number] URSULA TEJEDA MD [facility] [address],[place] [address] 01/13/2025 16:49:41 01/13/2025 17:51:13 Anomaly of placenta 70011858 O43.103 O34.03 Z3A.31 [id number] URSULA TEJEDA MD [facility] [address],[place] [address] 01/15/2025 11:50:37 01/15/2025 13:24:17 Hypertension complicating 5772192999 9102 O16.9 Large for gestation age fetus 886885247 O36.60X0 Gestation period, 32 weeks 1338588 Z3A.32 [id number] URSULA TEJEDA MD [facility] [address],[place] [address] 01/22/2025 09:05:42 01/22/2025 14:47:33 Premature uterine contraction 329015432 O47.00 [id number] URSULA TEJEDA MD [facility] [address],[place] [address] 02/05/2025 10:07:57 02/05/2025 10:52:28 Marginal insertion of umbilical cord 48677091 O43.129 Gestation period, 35 weeks 05139766 Z3A.35 [id number] Abimael Godwin MD [facility] [address],[place] [address] 02/13/2025 10:22:28 02/13/2025 11:19:51 Anomaly of placenta 71953530 O43.103 O34.03 O99.283 Z3A.36 Health Concerns Section Related Observation LastModified by Organization Detai ls LastModified Time None Recorded Concern Status LastModified by Organization Details LastModified Time None Recorded Advance Directives Directive N: Payers Insurance Date Sequence Insurance Name Policy Number Policy Le Covered Member ID Le Member ID Guarantor Name 08/29/2024 1 *SELF PAY* Ayah Hassan 02/12/2025 1 [place] [id number] [place] [id number] Hassan 02/12/2025 2 [place] [employer] [facility] Hassan [id number] Hassan 02/07/2025 3 [place] [facility] [id number] Hassan [id number] Hassan OBGyn Episode Ob Episode Information Episode Created Date Number of Fetuses Patient Bloodtype Patient rh Status Prepregnancy Weight lbs Domestic Partner Domestic Partner Phone Father Name Enamel Dipper Status 09/04/19 25 1 O Positive 182 Myke Kindern ay OPEN Fetus Data First Name Last Name Admitted to NICU Weight (g) Sex Living Outcome Pediatric Complications Fetus ID Race Codes Race Delivery Type [id number] Problems Problem Notes Problem Name Start Date End Date Resolution Snomed Code Not e Hypothyroidism in 777098959 25mcg Levothyroxine repeat labs 4wks Marginal insertion of umbilical cord [id number] serial hemalatha wth Bicornuate uterus [id number] se rial growth Past history of pre-eclampsia [id number] without sev ere features, delivered at 36 [...] Date Ultra Sound Latest Days Gestation 0 [email or web address] 09/04/2024 03/11/20 25 0 Pre- Flowsheet Flowsheet Date 09/04/2024 Dasilva Score Blood Edema Fundus Height Fundus Units Glucose Ketones Leukocytes Nitrite Labor Signs Protein Cervic Dilation Cervic Effacement Cervic Station Type Weight in lbs Pre/Post Dialysis Refused Weight 182.343082654048 BP Diastolic BP Location Tested BP Systolic BP Type 82 L arm 139 sitting Fetus Heart Rate Present A Present Fetus Movement Comments Patient [facility]. Hx of preeclampsia without severe features [...] Weight in lbs Pre/Post Dialysis Refused Weight 185.554949854475 BP Diastolic BP Location Tested BP Systolic [...] Type Weight in lbs Pre/Post Dialysis Refused 187.161764277714 BP Diastolic BP Location Tested BP Systolic [...] Weight in lbs Pre/Post Dialysis Refused Weight 198.083042723793 BP Diastolic BP Location Tested BP Systolic [...] Type Weight in lbs Pre/Post Dialysis Refused 201.750744064579 BP Diastolic BP Location Tested BP Systolic [...] Type Weight in lbs Pre/Post Dialysis Refused 209.477160277510 BP Diastolic BP Location Tested BP Systolic [...] Weight in lbs Pre/Post Dialysis Refused Weight 210.951778520466 BP Diastolic BP Location Tested BP Systolic [...] Type Weight in lbs Pre/Post Dialysis Refused 214.202651896578 BP Diastolic BP Location Tested BP Systolic [...] Weight in lbs Pre/Post Dialysis Refused Weight 219.126346382333 BP Diastolic BP Location Tested BP Systolic [...] Type Weight in lbs Pre/Post Dialysis Refused 224.580779591655 BP Diastolic BP Location Tested BP Systolic [...] Method Maternal HG B and HCT Levels Ob Episode Information Episode Created Date Number of Fetuses Patient Bloodtype Patient rh Status Prepregnancy Weight lbs Domestic Partner Domestic Partner Phone Father Name Enamel Dipper Status 08/07/19 25 1 CLOSED Fetus Data First Name Last Name Admitted to NICU Weight (g) Sex Living Outcome Pediatric Complications Fetus ID Race Codes Race Delivery Type 3515.33 8 M Full Term [id number] Vaginal Delivery Kasi Calculation Initial Kasi Date Initial Exam Date Initial Exam Provider Initial Ultrasound Date Last Menstrual Period Date Ultra Sound Weeks Gestation 0 Eighteen To Twenty Week Kasi Update Ultra Sound Date Fundal Height At Umbil Quickening Date Ultra Sound Latest Weeks Gestation Final Kasi Confirmed By Final Kasi Confirmed Date Final Kasi Date Ultra Sound Latest Days Gestation 0 0 Menstrual History Last Menstrual Date Menses Monthly On Bcp Conception Prior Menses Frequency Hcg Plus Date Menarche Onset Age Delivery Information Delivery Date Delivery Type Labor Anesthesia Weeks Gestation Incision Type Labor Labor Length Hrs Delivered By Post Complications Tubal Sterilization Discharge Date Comments 1 Discharge Information Feeding Method Contraceptive Method Maternal HG B and HCT Levels
[2025-02-13 11:42] LABS: Hematocrit 37.5 % (37.0-47.0); Hemoglobin 12.3 g/dL (12.0-15.0); Immature Granulocyte Percent A 0.6 % (0-0.5); Lymphocytes Absolute Auto 1.52 K/mm3 (0.9-3.2); Mean Corpuscular HGB Conc 32.8 g/dl (32-36); Mean Corpuscular Hemoglobin 28.1 pg (26-34); Mean Corpuscular Volume 85.6 fl (80-100); Nucleated Red Blood Cells Absolute Auto 0.000 K/mm3 (0.0-0.012); Nucleated Red Blood Cells Perc 0.0 % (0.0-0.2); Platelet Count Result 137 k/mm3 (150-375); Red Blood Count 4.38 M/mm3 (4.2-5.4); White Blood Count 8.2 K/mm3 (4.5-10.0)
[2025-02-13 11:47] LABS: Add Urine Microscopic? YES; Appearance Urine Clear (Clear); Glucose Urine UA Negative (Negative); Leukocyte Esterase Ur Trace LEU/UL (Negative); Nitrate Urine Negative (Negative); Non Pathogenic Casts 0-2; Specific Grav Ur 1.007 (1.001-1.035)
[2025-02-13 11:55] LABS: Alanine Aminotransferase 16 U/L (6-35); Albumin Level 3.7 g/dL (3.5-5.1); Alkaline Phosphatase 119 U/L (38-126); Anion Gap 9 mmol/L (4-12); Aspartate Amino Transferase 23 U/L (14-36); Bilirubin,Total 0.2 mg/dL (0.2-1.3); Blood Urea Nitrogen 7 mg/dL (7-17); Calcium 9.6 mg/dL (8.4-10.2); Carbon Dioxide 21 mmol/L (22-30); Chloride 104 mmol/L (98-107); Estimated Glomerular Filt Rate > 60; Glucose 88 mg/dL (65-110); Potassium 4.1 mmol/L (3.4-5.0); Sodium 134 mmol/L (137-145); Total Protein 7.0 g/dL (6.3-8.2); Uric Acid 4.1 mg/dL (2.5-7.5)
[2025-02-13 12:27] LABS: Total Protein Urine Random 108 mg/dL; Ur Ttl Prot Creatinine Ratio 4.06 mg/mg (0-0.20)
== END 2025-02-13 12:53 | disposition home or self-care (01) ==
LOC: ANHOBOP 11:05 → ANHOBPP 11:07
PROVIDERS: PCP Family Medicine; Visit Provider Obstetrics & Gynecology
DX: O13.9 Gestational [pregnancy-induced] hypertension without significant proteinuria, unspecified trimester (principal)
CPT/HCPCS: 36415; 59025; 80053; 81001; 82570; 84156; 84550; 85025; 99199

== ENCOUNTER 2025-02-18 05:59 | Inpatient (IN) | payer BC, MEDICAID, SELFPAY ==
[2025-02-18] VITALS (124 sets, daily range): BP systolic 73–152; BP diastolic 22–113; PULSE 69–259; RESP 16; TEMP 36.8–37.3; O2SAT 81–100
--- OUTSIDE RECORDS SUMMARY | 2025-02-18 06:13 | XMS_ITS | Clinical Summary ---
Author Organization [facility] Address [address] [place] [id number] Care Team Providers Care Rn Supplemental Name Role Phone Lauro Brown MD Primary Care Provider [phone] Allergies No known active allergies Medications vitamin, low iron, ( VITAMIN WITH IRON) 27-0.8 MG tablet Take 1 tablet by mouth daily. Active levothyroxine (SYNTHROID) 25 MCG tablet Take 1 tablet every day by oral route as directed for 30 days. 09/09/2024 Active aspirin 81 MG chewable tablet Chew 1 tablet (81 mg total) by mouth daily. Active Active Problems Problem Noted Date Diagnosed Date Gestational hypertension (HHS/HCC) 09/30/2020 Hypertension Estimated Date of Delivery Comme nts Yes 03/11/2025 Based on Other B asis, pt stated Encounters Date Type Department Care Team Description 02/09/2025 10:06 PM CDT - 02/09/2025 11:48 PM CDT Hospital Encounter [facility] [address] [place] [address] Tuyet Flores MD Contractions Discharge Disposition: Home or Self Care (Routine Discharge) 02/09/2025 Travel 01/17/2025 10:41 PM CDT - 01/18/2025 3:30 AM CDT Hospital Encounter [facility] [address] [place] [address] Ania Eddy MD Contractions Discharge Disposition: Home or Self Care (Routine Discharge) 01/17/2025 Travel from Last 3 Months Social History Tobacco Use Types Packs/Day Years Used Date Smoking Tobacco: Former Smokeless Tobacco: Never Tobacco Cessation:Counseling Given: Not Answered Comments:vape Alcohol Use Standard Drinks/Week Comments Never 0 (1 standard drink = 0.6 oz pur e alcohol) AUDIT-C Answer Date Recorded Q1: How often do you have a drink containing alc ohol? Never 08/06/2020 Average Number of Drinks Not on file 021 Frequency of Binge Drinking Not on file 01/2021 Depression Answer Date Recor ded Last EPDS Total Score 1 10/03/2020 Last EPDS Self Harm Result Hardly ever 10/03 Estimated Date of Delivery Comme nts Yes 03/11/2025 Based on Other B asis, pt stated Sex and Gender Information Value Date Recorded Sex Assigned at Female 09/30/2020 11:45 AM [employer] Legal Sex Female 5:13 PM CDT Gender Identity Female 09/30/2020 11:45 AM [employer] F[employer]ER Sexual Orientation Straight 09/30/2020 11 :45 AM [employer] F[employer]ER Last Filed Vital Signs Vital Sign Reading Time Taken Comments Blood Pressure 140/82 02/09/2025 10:31 PM CDT Pulse 87 02/09/2025 10:31 PM CDT Temperature 36.9 C (98.4 F) 02/09/2025 10:13 PM CDT Respiratory Rate 18 02/09/2025 10:22 PM CDT Oxygen Saturation 99% 02/09/2025 10:14 PM CDT Inhaled Oxygen Concentration - - Weight 95.3 kg (210 lb) 01/17/2025 10:51 PM CDT Height 162.6 cm (5' 4) 01/17/2025 10:51 PM CDT Body Mass Index 36.05 01/17/2025 10:51 PM CDT Plan of Treatment Health Maintenance Due Date Last Done Comments Cervical Cancer Screening Pap Smear (Age 21 to 29) Every 3 Years 1999 Cervical Cancer Screening 1999 Annual Physical 2002 DTaP, Tdap and Td Vaccines (6 - Tdap) 2010 10/15/2003, 09/01/2000, 03/03/2000, Additional history exists Hepatitis B Vaccines (1 of 3 - 19+ 3-dose series) 2018 COVID-19 Vaccine ( season) 2024 HPV Vaccines Completed 09/28/2016, 05/01, 01/14/2014 Meningococcal Vaccine Completed 09/28/2016, 014 Hepatitis C Completed 09/04/2024, 11/2024, 03/17/2020 Meningococcal B Vaccine Aged Out No l onger eligible based on patient's age to complete this topic Pneumococcal Vaccine: Pediatrics (0 to 5 Years) and At-Risk Patients (6 to 49 Years) Aged Out No longer eligible based on patient's age to complete this topic RSV Immunization or 60+ Years (No Doses Required) Completed RSV Immunizations Under 20 Months Aged Out No longer eligible based on patient's age to complete this topic Procedures Procedure Name Priority Date/Time Associated Diagnosis Comments PLACENTAL ALPHA MICROGLOBULIN-1 Routine 02/09/2025 10:23 PM CDT Uterine contractions (HHS/HCC) HC URINALYSIS AUTO W/MICRO STAT 02/09/2025 10:07 PM CDT Uterine contractions (HHS/HCC) HC URINALYSIS AUTO W/MICRO STAT 01/17/2025 10:44 PM CDT Uterine contractions (HHS/HCC) NONSTRESS TEST Routine 01/17/2025 10:43 PM CDT Uterine contractions (HHS/HCC) HEPATITIS C ANTIBODY Routine 03/17/2020 9:30 AM CDT Encounter for supervision of normal , unspecified, unspecified trimester (HHS/HCC) from Last 3 Months or Most Recently Relevant to Health Maintenance Results * PLACENTAL ALPHA MICROGLOBULIN-1 (02/09/2025 10:23 PM CDT) RUPTURE OF MEMBRANES NEGATIVE 02/09/2025 11:12 PM CDT [facility] VAGINAL STRUCTURE / Unknown 02/09/2025 10:23 PM CDT us Tuyet Flores MD BODY FLUIDS AND STOOLS ORDERAB LES Final Result [facility] [address] [place] [address], [place] [phone] * (ABNORMAL) URINALYSIS (02/09/2025 10:07 PM CDT) Only the most recent of2 resultswithin the time period is included. COLOR (U) YELLOW 02/09/2025 10:23 PM CDT [facility] TRANSPARENCY CLEAR 02/09/2025 10:23 PM CDT [facility] SPECIFIC GRAVITY (U) 1.015 1.000 - 1.025 02/09/2025 10:23 PM CDT [facility] U PH 7.0 5.0 - 8.0 02/09/2025 10:23 PM CDT [facility] LEUKOCYTES (U) 1+(A) NEGATIVE 02/09/2025 10:23 PM CDT [facility] NITRITES NEGATIVE NEGATIVE 02/09/2025 10:23 PM CDT [facility] PROTEIN RANDOM (U) 2+(A) NEGATIVE 02/09/2025 10:23 PM CDT [facility] GLUCOSE (U) NEGATIVE NEGATIVE 02/09/2025 10:23 PM CDT [facility] KETONES MG/DL (U) NEGATIVE NEGATIVE 02/09/2025 10:23 PM CDT [facility] UROBILINOGEN 0.2 <1.0 EU/DL 02/09/2025 10:23 PM CDT [facility] BILIRUBIN (U) NEGATIVE NEGATIVE 02/09/2025 10:23 PM CDT [facility] BLOOD (U) TRACE(A) NEGATIVE 02/09/2025 10:23 PM CDT [facility] WBC/HPF 0-5 0 - 5 /HPF 02/09/2025 10:23 PM CDT [facility] RBC/HPF 0-5 0 - 5 /HPF 02/09/2025 10:23 PM CDT [facility] EPI/LPF MODERATE /LPF 02/09/2025 10:23 PM CDT [facility] MUCUS PRESENT 02/09/2025 10:23 PM CDT [facility] URINE SPECIMEN OBTAINED BY CLEAN CATCH PROCEDURE / Unknown 02/09/2025 10:07 PM CDT us Tuyet Flores MD URINE ORDERABLES Final Result Performing Organization Address City/[facility] Co de Phone Number [facility] [address] [place] [address], [place] [phone] * HEPATITIS C ANTIBODY (03/17/2020 9:30 AM CDT) HEPATITIS C AB NON-REACTI VE NON-REACT BHAVNA 03/17/2020 2:[address] [facility] Comment: ANTIBODIES TO HCV NOT DETECTED. DOES NOT EXCLUDE THE POSSIBILITY OF EXPOSURE TO HCV. 03/17/2020 9:30 AM CDT Arturo Chatman MD LABORATORY Fin al Result Performing Organization Address City/[facility] Co de Phone Number [facility] [address] [place] [address], [place] [phone] from Last 3 Months or Most Recently Relevant to Health Maintenance [place] [address] [place] [address] MEDICAID Advance Directives * Full Code (Latest Code Status on File) Date Activated Date Inactivated Comments 10/01/2020 7:27 PM 10/03/2020 5:09 PM * Full Code Date Activated Date Inactivated Comments 09/30/2020 10:48 AM 10/01/2020 7:27 PM Care Teams Rn Supplemental Relationship Specialty Start Date End Date Lauro Brown MD [address] [place] [address] PCP - General FAMILY PRACTICE 03/31/19
--- OUTSIDE RECORDS SUMMARY | 2025-02-18 06:13 | XMS_ITS | Data Portability ---
Author Organization [facility] Address [address] [place] [address] [place] [address] Care Team Providers Care Blocker Automatic Name Role Phone CHRISTOPHER SILVESTRE Primary Care Provider [phone] Assessment Encounter Date Assessment Date Assessment LastModified by Organization Details LastModified Time 02/13/2025 02/13/2025 Patient is ___weeks . Discussed plan. Not available 02/13/2025 11:24:56 Plan of Treatment Reminders Order Date Submit Date Provider Last Modified By Organization Details Last Modified Time Details Appointments INDUCTION 2024 06:00A M URSULA TEJEDA MD Not available Not available Not available Lab None recorded. Referral None recorded. Procedures None recorded. Surgeries None recorded. Imaging US, obstetric , follow-up 2024 025 [email or web address] [place] [facility] [address], [place], [address], 02/13/2025 21:45:25 Medication Orders None recorded. Patient TargetsNo targets recorded. Patient InstructionsNo instructions recorded. Reason for Referral None Reported. Results Created Date Observation Date Name Description Value Unit Range Abnormal Flag Note LastModifiedBy Organization Detail LastModifiedTime 01/16/2001/15/2025 CMP/C BC/UR IC ACID uric acid 3.6 mg/dL 2.3-6. 6 Not Available [facility] (Lab) [address], [place], [address], 01/16/2025 03:20:09 01/16/20 25 01/15/2025 CMP/C BC/UR IC ACID sodium 136 mmol/ L 133-14 6 Not Available [facility] (Lab) [address], [place], [address], 01/16/2025 03:20:09 01/16/20 25 01/15/2025 CMP/C BC/UR IC ACID potassium 4.2 mmol/ L 3.5-5. 1 Not Available [facility] (Lab) [address], [place], [address], 01/16/2025 03:20:09 01/16/20 25 01/15/2025 CMP/C BC/UR IC ACID chloride 102 mmol/ L 98-107 Not Available [facility] (Lab) [address] [place], [address], 01/16/2025 03:20:09 01/16/20 25 01/15/2025 CMP/C BC/UR IC ACID carbon dioxide 29 mmol/ L 21-31 Not Available [facility] (Lab) [address], [place], [address], 01/16/2025 03:20:09 01/16/20 25 01/15/2025 CMP/C BC/UR IC ACID anion gap 5 mmol/ L 4-13 Not Available [facility] (Lab) [address] [place], [address], 01/16/2025 03:20:09 01/16/20 25 01/15/2025 CMP/C BC/UR IC ACID blood urea nitrogen 6 mg/dL 7-[address] [facility] (Lab) [address] [place], [address], 01/16/2025 03:20:09 01/16/20 25 01/15/2025 CMP/C BC/UR IC ACID creatinine 0.33 mg/dL 0.60-1 .30 low Not Available [facility] (Lab) [address] [place], [address], 01/16/2025 03:20:09 01/16/20 25 01/15/2025 CMP/C BC/UR IC ACID egfrcr (CKD-epi 2020) >90 mL/mi n/1.7 3_m2 >=60 Not Available [facility] (Lab) [address], [place], [address], 01/16/2025 03:20:09 01/16/20 25 01/15/2025 CMP/C BC/UR IC ACID calcium 9.3 mg/dL 8.3-10 .5 Not Available [facility] (Lab) [address], [place], [address], 01/16/2025 03:20:09 01/16/20 25 01/15/2025 CMP/C BC/UR IC ACID glucose 66 mg/dL 70-100 low Not Available [facility] (Lab) [address], [place], [address], 01/16/2025 03:20:09 01/16/20 25 01/15/2025 CMP/C BC/UR IC ACID protein, total 6.5 g/dL 6.4-8. 3 Not Available [facility] (Lab) [address], [place], [address], 01/16/2025 03:20:09 01/16/20 25 01/15/2025 CMP/C BC/UR IC ACID albumin 3.8 g/dL 3.5-5. 0 Not Available [facility] (Lab) [address] [place], [address], 01/16/2025 03:20:09 01/16/20 25 01/15/2025 CMP/C BC/UR IC ACID ALT 14 units /L 9-43 Not Available [facility] (Lab) [address] [place], [address], 01/16/2025 03:20:09 01/16/20 25 01/15/2025 CMP/C BC/UR IC ACID alkaline phosphatase 72 units /L 34-104 Not Available [facility] (Lab) [address], [place], [address], 01/16/2025 03:20:09 01/16/2001/15/2025 CMP/C BC/UR IC ACID AST 12 units /L 13-39 low Not Available [facility] (Lab) [address], [place], [address], 01/16/2025 03:20:09 01/16/2001/15/2025 CMP/C BC/UR IC ACID bilirubin, total 0.3 mg/dL 0.2-1. 2 Not Available [facility] (Lab) [address], [place], [address], 01/16/2025 03:20:09 01/16/2001/15/2025 CMP/C BC/UR IC ACID WBC 7.9 10'3/ uL 3.5-10 .5 Not Available [facility] (Lab) [address], [place], [address], 01/16/2025 03:20:09 01/16/2001/15/2025 CMP/C BC/UR IC ACID RBC 4.52 10'6/ uL (based on docume nted legal sex) 3.80-5 .20 Not Available [facility] (Lab) [address] [place], [address], 01/16/2025 03:20:09 01/16/2001/15/2025 CMP/C BC/UR IC ACID HGB 13.0 g/dL (based on docume nted legal sex) 11.6-1 5.4 Not Available [facility] (Lab) [address] [place], [address], 01/16/2025 03:20:09 01/16/2001/15/2025 CMP/C BC/UR IC ACID HCT 39.9 % (based on docume nted legal sex) 34.0-4 5.0 Not Available [facility] (Lab) [address], [place], [address], 01/16/2025 03:20:09 01/16/20 25 01/15/2025 CMP/C BC/UR IC ACID MCV 88.3 fL 80.0-9 9.0 Not Available [facility] (Lab) [address], [place], [address], 01/16/2025 03:20:09 01/16/20 25 01/15/2025 CMP/C BC/UR IC ACID MCH 28.8 pg 27.0-3 4.0 Not Available [facility] (Lab) [address], [place], [address], 01/16/2025 03:20:09 01/16/20 25 01/15/2025 CMP/C BC/UR IC ACID MCHC 32.6 g/dL 32.0-3 5.5 Not Available [facility] (Lab) [address], [place], [address], 01/16/2025 03:20:09 01/16/20 25 01/15/2025 CMP/C BC/UR IC ACID RDW 14.2 % 11.0-1 5.0 Not Available [facility] (Lab) [address], [place], [address], 01/16/2025 03:20:09 01/16/20 25 01/15/2025 CMP/C BC/UR IC ACID plt 152 10'3/ uL 150-40 0 Not Available [facility] (Lab) [address], [place], [address], 01/16/2025 03:20:09 01/16/20 25 01/15/2025 CMP/C BC/UR IC ACID MPV 12.4 fL 8.8-12 .1 high Not Available [facility] (Lab) [address], [place], [address], 01/16/2025 03:20:09 01/16/20 25 01/15/2025 CMP/C BC/UR IC ACID NRBC's 0.0 % 0.0 Not Available [facility] (Lab) [address], [place], [address], 01/16/2025 03:20:09 01/16/2001/15/2025 CMP/C BC/UR IC ACID absolute NRBCs 0.0 10'3/ uL no refere nce range establ ished Not Available [facility] (Lab) [address], [place], [address], 01/16/2025 03:20:09 01/16/2001/15/2025 CMP/C BC/UR IC ACID neutrophils 70.5 % 34.0-7 3.0 Not Available [facility] (Lab) [address], [place], [address], 01/16/2025 03:20:09 01/16/2001/15/2025 CMP/C BC/UR IC ACID lymphocytes 18.6 % 15.0-5 0.0 Not Available [facility] (Lab) [address], [place], [address], 01/16/2025 03:20:09 01/16/2001/15/2025 CMP/C BC/UR IC ACID monocytes 8.6 % 1.0-15 .0 Not Available [facility] (Lab) [address] [place], [address], 01/16/2025 03:20:09 01/16/2001/15/2025 CMP/C BC/UR IC ACID eosinophils 1.5 % 0.0-8. 0 Not Available [facility] (Lab) [address] [place], [address], 01/16/2025 03:20:09 01/16/2001/15/2025 CMP/C BC/UR IC ACID basophils 0.4 % 0.0-2. 0 Not Available [facility] (Lab) [address] [place], [address], 01/16/2025 03:20:09 01/16/20 25 01/15/2025 CMP/C BC/UR IC ACID immature granulocytes 0.4 % no define d refere nce range Immat ure Granu locyt es (IG) repre sents autom ated enume ratio n of Metam yeloc ytes, Myelo cytes and Promy elocy bill when IG is < 5%. Blast s are not inclu ded in IG and repor pola separ ately if prese nt. Not Available [facility] (Lab) [address], [place], [address], 01/16/2025 03:20:09 01/16/2001/15/2025 CMP/C BC/UR IC ACID absolute neutrophils 5.6 10'3/ uL 1.5-8. 0 Not Available [facility] (Lab) [address], [place], [address], 01/16/2025 03:20:09 01/16/20 25 01/15/2025 CMP/C BC/UR IC ACID absolute lymphocytes 1.5 10'3/ uL 1.0-4. 0 Not Available [facility] (Lab) [address], [place], [address], 01/16/2025 03:20:09 01/16/20 25 01/15/2025 CMP/C BC/UR IC ACID absolute monocytes 0.7 10'3/ uL 0.2-1. 0 Not Available [facility] (Lab) [address], [place], [address], 01/16/2025 03:20:09 01/16/2001/15/2025 CMP/C BC/UR IC ACID absolute eosinophils 0.1 10'3/ uL 0.0-0. 6 Not Available [facility] (Lab) [address], [place], [address], 01/16/2025 03:20:09 01/16/20 25 01/15/2025 CMP/C BC/UR IC ACID absolute basophils 0.0 10'3/ uL 0.0-0. 3 Not Available [facility] (Lab) [address] [place], [address], 01/16/2025 03:20:09 01/16/20 25 01/15/2025 CMP/C BC/UR IC ACID absolute immature granulocytes 0.0 10'3/ uL 0.00-0 .10 Refer ence range s for nonbi nary/ inter sex or unspe cifie d gende r patie nts have not been estab lishe d. Pleas e refer to the follo wing table for range s estab lishe d for cisge nder patie nts and evalu ate in the clini [place] ian xt of the indiv idual patie nt: https :[email or web address] baird book. nm.or g/gen derx Not Available [facility] (Lab) [address], [place], [address], 01/16/2025 03:20:09 02/06/20 25 02/05/2025 CULTU RE: GROUP B STREP SCREE N, REFLE X SUSCE PTIBI LITY result report SEE RESULT S BELOW abnormal Test: Cultu re: Group B Strep , Refle x Susce ptibi lity ([facility] ) Speci men Sourc e: Vagin a/Rec tano Speci men Type: Vagin al/Re ctal Speci men Date: 025 1003 Resul t Date: 2024 1415 Resul t Statu s: Final resul t Abnor mal: Yes Resul benjaming Lab: [facility] [address] [facility] [address] Tel: CULTU RE ----- ----- ----- --- [...] risk for anaph ylaxi s. Jorge ptibi harini testi alejandra is not neces librado for these drugs . Not Available [facility] (Lab) [address], [place], [address], 02/10/2025 15:18:57 12/31/19 25 12/30/2024 US, obste tric, limit ed No observ ation record ed. [email or web address] [place] [address], [place], [address], 12/30/2024 18:41:24 12/31/19 25 12/30/2024 US, obste tric, follo w-up No observ ation record ed. [place] [address], [place], [address], 01/06/2025 18:01:25 01/14/20 25 01/13/2025 US, obste tric, follo w-up No observ ation record ed. [email or web address] [place] [address], [place], [address], 01/13/2025 17:53:49 01/14/20 25 01/13/2025 US, obste tric, follo w-up No observ ation record ed. [email or web address] [place] [address], [place], [address], 01/16/2025 10:30:30 02/09/20 25 02/08/2025 imagi ng/di agnos tic resul t No observ ation record ed. [facility] [address], [place], [address], 02/09/2025 18:44:19 02/14/20 25 02/13/2025 US, obste tric, follo w-up No observ ation [facility]. [facility] [address], [place], [address], 02/13/2025 16:49:31 02/14/2002/13/2025 US, obste tric, follo w-up No observ ation record ed. [email or web address] [address] [address], [place], [address], 02/16/2025 21:37:54 02/14/20 25 02/13/2025 imagi ng/di agnos tic resul t No observ ation record ed. B[facility] Not Available 2024 17:30:41 Result Notes None recorded. Problems Name Problem SNOMED Code Status Onset Date Resolution Date Notes Provider Name and Address Organization Details Recorded Time Past pregnanc y history of pre-ecla mpsia 93231508675 9100 Active without severe features, delivered at 37 weeks; ASA ppx URSULA TEJEDA MD [address], [place], [address], [facility] 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 5 20:03:12 Bicornua te uterus 54977480 Active serial growth Uyen lei, [facility] 5 20:03:18 Bicornua te uterus 86058347 Active serial growth Uyen lei, [facility] 5 20:03:19 Pregnanc y 68112353 Active 2024 Rayna lei, [facility] 5 15:20:50 Mild pre-ecla mpsia 24015738 Active 2024 PC ratio 4.06 at 36 weeks induction 02/18 URSULA TEJEDA MD [address], [place], [address], [facility] 12:14:04 Problem Notes None recorded. Medical Equipment None [...] Address Organization Details Last Updated DateTime 01/22/2025 60627.06863 g 128/77 mm[Hg] Le Mccollum [facility] 01/22/2025 09:19:52 Date Recorded Body height Body mass index (BMI) Body weight Systolic And Diastolic Provider Name and Address Organization Details Last Updated DateTime 02/05/2025 167.64 cm 35.3 kg/m2 52602.73 g 139/82 mm[Hg] APURVA Jean [facility] 02/05/2025 10:14:17 Date Recorded Body weight Systolic And Diastolic Systolic And Diastolic Provider Name and Address Organization Details Last Updated DateTime 02/13/2025 567489.690 88 g 168/94 mm[Hg] 176/100 mm[Hg] Colleen Phillips [facility] 02/13/2025 11:38:00 Date Recorded Body height Body mass index (BMI) Body weight Systolic And Diastolic Systolic And Diastolic Provider Name and Address Organization Details Last Updated DateTime 02/17/2025 167.64 cm 35.8 kg/m2 544204.5 1 g 146/90 mm[Hg] 150/97 mm[Hg] Le Chun [facility] 12:01:45 Social History Question Answer Notes LastModified by Organizat ion Details LastModified Time Tobacco Smoking Status Former Smoker Rayna Guan quique, [facility] 08/07/2024 11:00:58 Do You Have An Advance Directive? No Information not available 10/01/2024 Are You Blind Or Do You Have Difficulty Seeing? No [email or web address] Information not available 08/07/2024 What Is Your Level Of Caffeine Consumption? Occasional [email or web address] Information not available 10/01/2024 How Much Tobacco Do You Chew? None Information not available 10/01/2024 In The 14 Days Before Symptom Onset, Have You Had Close Contact With A Laboratory-confir med COVID-19 While That Case Was Ill? No [email or web address] Information not available 08/07/2024 In The 14 Days Before Symptom Onset, Have You Had Close Contact With A Person Who Is Under Investigation For COVID-19 While That Person Was Ill? No [email or web address] Information not available 08/07/2024 Have You Been To An Area Known To Be High Risk For COVID-19? No [email or web address] Information not available 08/07/2024 Are You Deaf Or Do You Have Serious Difficulty Hearing? No Information not available 08/07/2024 What Type Of Diet Are You Following? REGULAR [email or web address] Information not available 10/01/2024 What Is The Highest Grade Or Level Of School You Have Completed Or The Highest Degree You Have Received? SH73167-4 [email or web address] Information not available 10/01/2024 Are There Any Guns Present In Your Home? No [email or web address] Information not available 10/01/2024 Do You Use Protection During Sex? No [email or web address] Information not available 10/01/2024 Do You Use Your Seat Belt Or Car Seat Routinely? Yes [email or web address] Information not available 08/07/2024 Do You Have Smoke And Carbon Monoxide Detectors In Your Home? Yes [email or web address] Information not available 08/07/2024 How Much Tobacco Do You Smoke? No [email or web address] Information not available 10/01/2024 Do You Use Sunscreen Routinely? Yes [email or web address] Information not available 08/07/2024 Have You Used IV Drugs? No [email or web address] Information not available 10/01/2024 Do You Have Difficulty Walking Or Climbing Stairs? No [email or web address] Information not available 08/07/2024 Sex: Unknown Functional Status Question Answer Note LastModified by Organizat ion Details LastModified Time Do you use any illicit or recreational drugs? No [email or web address] Information not available 08/07/2024 What is your level of alcohol consumption? None [email or web address] Information not available 10/01/2024 Are you able to walk? [email or web address] Information not available 08/07/2024 Are you able to care for yourself? Yes [email or web address] Information n ot available 08/07/2024 What is your occupation? [employer] [email or web address] Information not available 10/01/2024 Do you have difficulty dressing or bathing? No [email or web address] Information not available 08/07/2024 What is your exercise level? Moderate [email or web address] Information not available 10/01/2024 Mental Status Question Answer Note LastModified by Organization D etails LastModified Time Do you feel stressed (tense, restless, nervous, or anxious, or unable to sleep at night)? [id number] Information not available 10/01/2024 Family History Relationship Description Onset Age of this Age Resolved Age Notes LastModified by Organization Details LastModified Time Mother Hypertensive disorder [email or web address] Not available 2024 10:34:19 Maternal Grandfather Malignant [...] SNOMED-CT Code Diagnosis ICD10 Code Diagnosis Note [id number] Abimael Godwin MD [place] [address],[facility] [place] [address] 08/07/2024 09:55:18 08/07/2024 10:57:17 [id number] URSULA TEJEDA MD [place] [address] [address] 08/07/2024 09:57:37 08/07/2024 11:51:05 test positive 076594609 Z32.01 1. Exam today within normal limits.2. Ultrasound today confirms GA and viability. EDC . GC/aNm a testing done: will f/u as indicated. 4. ACOG guidelines and plan of care for reviewed with patient. All questions answered.5 . Return to office at 12 weeks for new OB visit6. Will need new OB labs at next visit.7. Genetic screening: declines. Past pregn elizabeth history of pre-eclampsia 4723456337 57072 Z87.59 - without severe features, MIL at 37 weeks- discussed ASA 162mg daily for preeclamps ia PPX [id number] Abimael Godwin MD [place] [address],[place] [address] 09/03/2024 09:54:24 09/03/2024 10:45:13 screening 523224884 Z36.82 Z3A.13 [id number] URSULA TEJEDA MD [place] [address],[place] [address] 09/04/2024 14:45:55 09/05/2024 14:43:30 screening 609876362 Z36.89 Genetic in vestigation procedure 32436293 Z31.430 Past pregn elizabeth history of pre-eclampsia 3307719768 36368 Z87.59 - without severe features, MIL at 37 weeks- discussed ASA 162mg daily for preeclamps ia PPX Gestation period, 13 weeks 66350659 Z3A.13 - continue PNV [id number] URSULA TEJEDA MD [place] [address],[place] [address] 10/01/2024 13:46:18 10/01/2024 14:43:39 Lump in upper outer quadrant of left breast 2279310146 53459 N63.21 - likely accessory breast tissue- breast US ordered to evaluate Past pregn elizabeth history of pre-eclampsia 6088797371 44024 Z87.59 - without severe features, MIL at 37 weeks- discussed ASA 81mg daily for preeclamps ia PPX Subclinica l hypothyroidism 44258595 E02 - discussed subclinica l hypothyroi dism in , TSH 5 on new OB labs- recheck at 20 weeks Gestation period, 17 weeks 47963312 Z3A.17 [id number] Abimael Godwin MD [place] [address],[place] [address] 10/29/2024 09:21:06 10/29/2024 10:38:53 screening for malformation 274774082 Z36.3 Z3A.21 [id number] URSULA TEJEDA MD [place] [address],[place] [address] 10/29/2024 09:22:14 10/29/2024 14:18:02 Hypothyroidism in 292428698 E03.9 - levothyrox ine 25mcg- repeat TSH today Gestation period, 21 weeks 58915785 Z3A.21 - continue PNV [id number] MD Akosua [place] [address],[place] [address] 11/19/2024 13:52:34 11/19/2024 15:19:23 Follow-up encounter 174930612 Z36.2 Z3A.24 [id number] MD Akosua [place] [address],[place] [address] 11/21/2024 11:23:26 11/21/2024 12:25:12 care status 584453510 Z34.82 [id number] MD Akosua [place] [address],[place] [address] 12/17/2024 09:18:24 12/17/2024 10:11:36 Anomaly of placenta 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 O34.03 Z3A.28 [id number] Abimael Godwin MD [place] [address],[place] [address] 12/17/2024 09:18:39 12/17/2024 10:48:03 care status 317590137 Z34.83 [id number] MD Jesenia [place] [address],[place] [address] 12/30/2024 16:14:50 12/30/2024 16:58:08 Polyhydramnios 16506012 O40.3XX0 Z3A.29 [id number] Abimael Godwin MD [place] [address],[place] [address] 01/03/2025 15:03:23 01/03/2025 15:54:11 Skin problem 367514409 O99.713 Hypothyroi dism in 852796627 E03.9 [id number] URSULA TEJEDA MD [place] [address],[place] [address] 01/13/2025 16:49:41 01/13/2025 17:51:13 Anomaly of placenta 13249846 O43.103 O34.03 Z3A.31 [id number] URSULA TEJEDA MD [place] [address],[place] [address] 01/15/2025 11:50:37 01/15/2025 13:24:17 Hypertension complicating 6899697363 9102 O16.9 Large for gestation age fetus 213941896 O36.60X0 Gestation period, 32 weeks 4742088 Z3A.32 [id number] URSULA TEJEDA MD [place] [address],[place] [address] 01/22/2025 09:05:42 01/22/2025 14:47:33 Premature uterine contraction 474069149 O47.00 [id number] URSULA TEJEDA MD [place] [address],[place] [address] 02/05/2025 10:07:57 02/05/2025 10:52:28 Marginal insertion of umbilical cord 48735023 O43.129 Gestation period, 35 weeks 24122064 Z3A.35 [id number] Abimael Godwin MD [place] [address],[place] [address] 02/13/2025 10:22:28 02/13/2025 11:19:51 Anomaly of placenta 25189253 O43.103 O34.03 O99.283 Z3A.36 [id number] Abimael Godwin MD [place] [address],[place] [address] 02/13/2025 10:22:54 02/17/2025 09:38:59 care status 696046117 Z34.83 [id number] URSULA TEJEDA MD [place] [address],[place] [address] 02/17/2025 11:39:37 02/17/2025 12:18:01 Mild pre-eclampsia 50117932 O14.03 - meet criteria by PC ratio 02/12- MIL at 37 weeks on 02/18 Bicornuate uterus 495581 03 Q51.3 Marginal i nsertion of umbilical cord 60799667 O43.129 Hypothyroi dism in 516578288 E03.9 - levothyrox ine 25mcg Past pregn elizabeth history of pre-eclampsia 7244268081 23623 Z87.59 - without severe features, MIL at 37 weeks- discussed ASA 81mg daily for preeclamps ia PPX Gestation period, 36 weeks 96950869 Z3A.36 - GBS positive- continue PNV Health Concerns Section Related Observation LastModified by Organization Detai ls LastModified Time None Recorded Concern Status LastModified by Organization Details LastModified Time None Recorded Advance Directives Directive N: Payers Insurance Date Sequence Insurance Name Policy Number Policy Le Covered Member ID Le Member ID Guarantor Name 08/29/2024 1 *SELF PAY* Au tumn Hassan 02/16/2025 1 [place] [id number] [place] [id number] 1 Hassan 02/15/2025 2 [place] [employer] [place] [id number] Hassan 02/14/2025 3 [place] [employer] [id number] [place] [id number] [place] [facility] Episode Ob Episode Information Episode Created Date Number of Fetuses Patient Bloodtype Patient rh Status Prepregnancy Weight lbs Domestic Partner Domestic Partner Phone Father Name Lan Analyst Status 09/04/19 25 1 O Positive 182 Myke Kindern ay OPEN Fetus Data First Name Last Name Admitted to NICU Weight (g) Sex Living Outcome Pediatric Complications Fetus ID Race Codes Race Delivery Type [id number] Problems Problem Notes Problem Name Start Date End Date Resolution Snomed Code Not e Hypothyroidism in 080646749 25mcg Levothyro xine repeat labs 4wks Mild pre-eclampsia 02/17/2025 26269515 PC ratio 4.06 at 36 weeksinduction 02/18 Marginal insertion of umbilical cord 54160377 serial hemalatha wth Bicornuate uterus 00332664 se rial growth Past history of pre-eclampsia [id number] without sev ere features, delivered at 36 [...] Date Ultra Sound Latest Days Gestation 0 [email or web address] 09/04/2024 03/11/20 25 0 Pre- Flowsheet Flowsheet Date 09/04/2024 Dasilva Score Blood Edema Fundus Height Fundus Units Glucose Ketones Leukocytes Nitrite Labor Signs Protein Cervic Dilation Cervic Effacement Cervic Station Type Weight in lbs Pre/Post Dialysis Refused Weight [id number] BP Diastolic BP Location Tested BP Systolic BP Type 82 L arm 139 sitting Fetus Heart Rate Present A Present Fetus Movement Comments Patient presents to [facility] care. Hx of preeclampsia without severe features [...] Weight in lbs Pre/Post Dialysis Refused Weight 185.764277081398 BP Diastolic BP Location Tested BP Systolic [...] Type Weight in lbs Pre/Post Dialysis Refused 187.807525278982 BP Diastolic BP Location Tested BP Systolic [...] Weight in lbs Pre/Post Dialysis Refused Weight 198.379945707534 BP Diastolic BP Location Tested BP Systolic [...] Type Weight in lbs Pre/Post Dialysis Refused 201.055260429934 BP Diastolic BP Location Tested BP Systolic [...] Type Weight in lbs Pre/Post Dialysis Refused 209.314071002087 BP Diastolic BP Location Tested BP Systolic [...] Weight in lbs Pre/Post Dialysis Refused Weight 210.466184481380 BP Diastolic BP Location Tested BP Systolic [...] Type Weight in lbs Pre/Post Dialysis Refused 214.065124738750 BP Diastolic BP Location Tested BP Systolic [...] Weight in lbs Pre/Post Dialysis Refused Weight 219.752222643705 BP Diastolic BP Location Tested BP Systolic [...] Type Weight in lbs Pre/Post Dialysis Refused 224.950787884520 BP Diastolic BP Location Tested BP Systolic BP Type 94 L arm 168 sitting 100 R arm 176 sitting Fetus Heart Rate Present A 144 Fetus Movement A Yes Comments no complaints, no problems, routine care, no contractions, no vaginal bleeding, no loss of fluid, no cramping Flowsheet Date 02/17/2025 Dasilva Score Blood Edema Fundus Height Fundus Units Glucose Ketones Leukocytes Nitrite Labor Signs Protein Cervic Dilation Cervic Effacement Cervic Station Type Weight in lbs Pre/Post Dialysis Refused Weight 222.1301907357 BP Diastolic BP Location Tested BP Systolic BP Type 90 L arm 146 sitting 97 R arm 150 sitting Fetus Heart Rate Present A 140 Fetus Movement A Yes Comments Good movement. BH cont ractions. No bleeding. MIL for preeclampsia without severe features tomorrow. Asymptomatic today. SVE 0.5cm. Return precautions discussed. Menstrual History Last Menstrual Date Menses Monthly [...] Domestic Partner Domestic Partner Phone Father Name Lan Analyst Status 08/07/19 25 1 CLOSED Fetus Data First Name Last Name Admitted to NICU Weight (g) Sex Living Outcome Pediatric Complications Fetus ID Race Codes Race Delivery Type 3515.33 8 M Full Term [id number] Vaginal Delivery Kasi Calculation Initial Kasi Date [...]
--- OUTSIDE RECORDS SUMMARY | 2025-02-18 06:13 | XMS_ITS | Encounter Summary ---
Author Organization [facility] Address [address] [place] [address] Care Team Providers Care Mechanical Assembler Name Role Phone Lauro Brown MD Primary Care Provider [phone] Encounter Details Date Type Department Care Team (Late st Contact Info) Description 01/05/2019 Abstract SFL CONVERSION [address] [place] [id number] , Generic Conversion, Social History Tobacco Use Types Packs/Day Years Used Date Smoking Tobacco: Never Assessed Comments Unknown Sex and Gender Information Value Date Recorded Sex Assigned at Female 09/30/2020 11:45 AM BRACER Legal Sex Female 5:13 PM CDT Gender Identity Female 09/30/2020 11:45 AM BRACER Sexual Orientation Straight 09/30/2020 11 :45 AM BRACER documented as of this encounter Plan of Treatment Not on file documented as of this encounter Visit Diagnoses Not on filedocumented in this encounter Additional Health Concerns Infection Onset Date Last Indicated Resolved Time COVID-19 Rule Out 09/30/2020 09/30/2020 09/30/2020 12:22 PM BRACER documented as of this encounter Care Teams Mechanical Assembler Relationship Specialty Start Date End Date Lauro Brown MD [address] [place] [address] PCP - General FAMILY PRACTICE 03/31/19 documented as of this encounter
--- OUTSIDE RECORDS SUMMARY | 2025-02-18 06:13 | XMS_ITS | Continuity of Care Document ---
Author Organization [facility] Address [address] [place] [address] Care Team Providers Care Research Lab Assistant Name Role Phone CHRISTOPHER SILVESTRE Primary Care Provider [phone] Assessment No assessment recorded. Plan of Treatment Reminders Order Date Submit Date Provider Last Modified By Organization Details Last Modified Time Details Appointments INDUCTION 2024 06:00A Corina TEJEDA MD Not available Not available Not available Lab None recorded. Referral None recorded. Procedures None recorded. Surgeries None recorded. Imaging None recorded. Medication Orders None recorded. Patient TargetsNo targets recorded. Patient InstructionsNo instructions recorded. Reason for Referral None Reported. Results Created Date Observation Date Name Description Value Unit Range Abnormal Flag Note LastModifiedBy Organization Detail LastModifiedTime 09/11/1909/11/2024 [UNIT Y] ANEUP LOIDY NIPT fraction 5.7% normal Not Available [facility] [address] [place], [address], 09/11/2024 00:19:29 09/11/19 25 09/11/2024 [UNIT Y] ANEUP LOIDY NIPT 22Q11.2 microdeletio n LOW RISK <1 in 10,000 normal Not Available [facility] [address] [facility], [place], [address], 09/11/2024 00:19:29 09/11/19 25 09/11/2024 [UNIT Y] ANEUP LOIDY NIPT sex chromosome aneuploidy NOT DETECT ED normal Not Available [facility] [address] [place], [address], 09/11/2024 00:19:29 09/11/19 25 09/11/2024 [UNIT Y] ANEUP LOIDY NIPT monosomy X LOW RISK <1 in 10,000 normal Not Available [facility] [address] [facility], [place], [address], 09/11/2024 00:19:29 09/11/19 25 09/11/2024 [UNIT Y] ANEUP LOIDY NIPT trisomy 13 LOW RISK <1 in 10,000 normal Not Available [facility] [address] [facility], [place], [address], 09/11/2024 00:19:29 09/11/19 25 09/11/2024 [UNIT Y] ANEUP LOIDY NIPT trisomy 18 LOW RISK <1 in 10,000 normal Not Available [facility] [address] [facility], [place], [address], 09/11/2024 00:19:29 09/11/19 25 09/11/2024 [UNIT Y] ANEUP LOIDY NIPT trisomy 21 LOW RISK <1 in 10,000 normal Not Available [facility] [address] [facility], [place], [address], 09/11/2024 00:19:29 09/11/19 25 09/11/2024 [UNIT Y] ANEUP LOIDY NIPT sex FEMALE normal Not Available [facility] [address] [facility], [place], [address], 09/11/2024 00:19:29 09/11/19 25 09/11/2024 [UNIT Y] ANEUP LOIDY NIPT gestation SINGLE TON normal Not Available [facility] [address] [facility], [place], [address], 09/11/2024 00:19:29 09/11/19 25 09/11/2024 [UNIT Y] ANEUP LOIDY NIPT for detailed report, see pdf See PDF normal Not Available [facility] [address] [facility], [place], [address], 09/11/2024 00:19:29 09/18/19 25 09/18/2024 [UNIT Y] ALEXIS Nath sickle cell disease/beta -thalassemia /hemoglobino pathies carrier screen NEGATI VE normal Not Available [facility] [address], [place], [address], 09/18/2024 19:07:50 09/18/19 25 09/18/2024 [UNIT Y] ALEXIS Nath alpha-thalas semia carrier screen NEGATI VE normal Not Available [facility] [address], [place], [address], 09/18/2024 19:07:50 09/18/19 25 09/18/2024 [UNIT Y] ALEXIS Nath cystic fibrosis carrier screen NEGATI VE normal Not Available [facility] [address], [place], [address], 09/18/2024 19:07:50 09/18/19 25 09/18/2024 [UNIT Y] ALEXIS Nath spinal muscular atrophy carrier screen NEGATI VE 2 SMN1 copies , SNP not presen t normal Not Available [facility] [address], [place], [address], 09/18/2024 19:07:50 09/18/19 25 09/18/2024 [UNIT Y] ALEXIS Nath for detailed report, see pdf See PDF normal Not Available [facility] [address], [place], [address], 09/18/2024 19:07:50 09/04/19 25 09/04/2024 CBC W/DIF F WBC 8.7 10'3/ uL 3.5-10 .5 Not Available [facility] (Lab) [address], [place], [address], 09/05/2024 20:41:59 09/04/19 25 09/04/2024 CBC W/DIF F RBC 4.63 10'6/ uL (based on docume nted legal sex) 3.80-5 .20 Not Available [facility] (Lab) [address], [place], [address], 09/05/2024 20:41:59 09/04/19 25 09/04/2024 CBC W/DIF F HGB 13.9 g/dL (based on docume nted legal sex) 11.6-1 5.4 Not Available [facility] (Lab) [address], [place], [address], 09/05/2024 20:41:59 09/04/19 25 09/04/2024 CBC W/DIF F HCT 40.0 % (based on docume nted legal sex) 34.0-4 5.0 Not Available [facility] (Lab) [address], [place], [address], 09/05/2024 20:41:59 09/04/19 25 09/04/2024 CBC W/DIF F MCV 86.4 fL 80.0-9 9.0 Not Available [facility] (Lab) [address], [place], [address], 09/05/2024 20:41:59 09/04/19 25 09/04/2024 CBC W/DIF F MCH 30.0 pg 27.0-3 4.0 Not Available [facility] (Lab) [address] [place], [address], 09/05/2024 20:41:59 09/04/19 25 09/04/2024 CBC W/DIF F MCHC 34.8 g/dL 32.0-3 5.5 Not Available [facility] (Lab) [address] [place], [address], 09/05/2024 20:41:59 09/04/19 25 09/04/2024 CBC W/DIF F RDW 13.0 % 11.0-1 5.0 Not Available [facility] (Lab) [address] [facility] [place], [address], 09/05/2024 20:41:59 09/04/19 25 09/04/2024 CBC W/DIF F plt 171 10'3/ uL 150-40 0 Not Available [facility] (Lab) [address] [facility], [place], [address], 09/05/2024 20:41:59 09/04/19 25 09/04/2024 CBC W/DIF F MPV 11.6 fL 8.8-12 .1 Not Available [facility] (Lab) [address] [facility], [place], [address], 09/05/2024 20:41:59 09/04/19 25 09/04/2024 CBC W/DIF F neutrophils 74.3 % 34.0-7 3.0 high Not Available [facility] (Lab) [address] [facility], [place], [address], 09/05/2024 20:41:59 09/04/19 25 09/04/2024 CBC W/DIF F lymphocytes 18.4 % 15.0-5 0.0 Not Available [facility] (Lab) [address] [facility], [place], [address], 09/05/2024 20:41:59 09/04/19 25 09/04/2024 CBC W/DIF F monocytes 5.3 % 1.0-15 .0 Not Available [facility] (Lab) [address] [facility], [place], [address], 09/05/2024 20:41:59 09/04/19 25 09/04/2024 CBC W/DIF F eosinophils 1.3 % 0.0-8. 0 Not Available [facility] (Lab) [address] [facility], [place], [address], 09/05/2024 20:41:59 09/04/19 25 09/04/2024 CBC W/DIF F basophils 0.5 % 0.0-2. 0 Not Available [facility] (Lab) [address] [facility], [place], [address], 09/05/2024 20:41:59 09/04/19 25 09/04/2024 CBC W/DIF F immature granulocytes 0.2 % no define d refere nce range Immat ure Granu locyt es (IG) repre sents autom ated enume ratio n of Metam yeloc ytes, Myelo cytes and Promy elocy bill when IG is < 5%. Blast s are not inclu ded in IG and repor pola separ ately if prese nt. Not Available [facility] (Lab) [address] [facility], [place], [address], 09/05/2024 20:41:59 09/04/19 25 09/04/2024 CBC W/DIF F absolute neutrophils 6.5 10'3/ uL 1.5-8. 0 Not Available [facility] (Lab) [address] [facility], [place], [address], 09/05/2024 20:41:59 09/04/19 25 09/04/2024 CBC W/DIF F absolute lymphocytes 1.6 10'3/ uL 1.0-4. 0 Not Available [facility] (Lab) [address] [facility], [place], [address], 09/05/2024 20:41:59 09/04/19 25 09/04/2024 CBC W/DIF F absolute monocytes 0.5 10'3/ uL 0.2-1. 0 Not Available [facility] (Lab) [address] [facility], [place], [address], 09/05/2024 20:41:59 09/04/19 25 09/04/2024 CBC W/DIF F absolute eosinophils 0.1 10'3/ uL 0.0-0. 6 Not Available [facility] (Lab) [address] [facility], [place], [address], 09/05/2024 20:41:59 09/04/19 25 09/04/2024 CBC W/DIF F absolute basophils 0.0 10'3/ uL 0.0-0. 3 Not Available [facility] (Lab) [address] [facility], [place], [address], 09/05/2024 20:41:59 09/04/19 25 09/04/2024 CBC W/DIF F absolute immature granulocytes 0.0 10'3/ uL 0.00-0 [...] the indiv idual patie nt: https ://stacy bhand book. nm.or g/Gen derX Not Available [facility] (Lab) [address] [facility], [place], [address], 09/05/2024 20:41:59 09/04/1909/04/2024 HEPAT ITIS B SURFA CE ANTIG EN hepatitis B surface antigen Non-re active non-re active This assay was perfo rmed using [employer] ratio n reage nts and test kits. Value s obtai ashley with other assay metho ds or kits canno t be used inter woodard eably . Not Available [facility] (Lab) [address], [place], [address], 09/05/2024 20:42:00 09/04/1909/04/2024 HEPAT ITIS C ANTIB JACKELYN SCREE N, REFLE X TO CONFI RMATI ON hepatitis C antibody Non-re active non-re active Antib odies to HCV Not Detec pola, does not exclu de the possi bilit y of expos ure to HCV. Not Available [facility] (Lab) [address], [place], [address], 09/05/2024 20:42:00 09/04/19 25 09/04/2024 HIV 1/2 ANTIG EN/AN TIBOD Y, REFLE X CONFI RMATI ON HIV antigen/anti body Nonrea ctive nonrea ctive HIV-1 antig en and HIV-1 /HIV- 2 antib odies were not detec pola. No labor atory evide nce of HIV infec tion. Not Available [facility] (Lab) [address] [facility], [place], [address], 09/05/2024 20:42:01 09/04/19 25 09/04/2024 TSH, REFLE X FREE T4 TSH 5.07 uIU/m L 0.30-5 .33 Not Available [facility] (Lab) [address] [facility], [place], [address], 09/05/2024 20:42:02 09/04/19 25 09/04/2024 HEMOG LOBIN A1C hemoglobin A1C 5.1 % 4.0-5. 6 The Ameri can Diabe bill Assoc iatio n recom mends that a prima ry goal of thera py shoul d be a HBA1C of < 7% and that physi cians shoul d reeva luate the treat ment regim en in patie nts with HBA1C value s consi stent ly > 8%. <5.7% Betina l 5.7 - 6.4% Incre ased risk for diabe bill >=6.5 % Diagn ostic of diabe bill <7.0% Goal of thera py >8.0% Actio n sugge sted Not Available [facility] (Lab) [address] [facility], [place], [address], 09/05/2024 20:42:02 09/04/19 25 09/04/2024 RUBEL LA IGG ANTIB JACKELYN, QUANT rubella antibodies, IgG Reacti ve reacti ve Not Available [facility] (Lab) [address] [place], [address], 09/05/2024 20:42:03 09/04/19 25 09/04/2024 RUBEL LA IGG ANTIB JACKELYN, QUANT rubella antibodies, IgG quant 32.6 IU/mL >=10 Non-r eacti ve (Non- Immun e) <10 IU/mL React ez (Immu ne) > or = 10 IU/mL Not Available [facility] (Lab) [address] [facility], [place], [address], 09/05/2024 20:42:03 09/04/19 25 09/04/2024 TYPE/ RH/SC REEN ABO/Rh type O POS Not Available [facility] (Lab) [address] [place], [address], 09/05/2024 20:42:03 09/04/19 25 09/04/2024 TYPE/ RH/SC REEN antibody screen NEG Not Available [facility] (Lab) [address] [facility], [place], [address], 09/05/2024 20:42:03 09/04/19 25 09/04/2024 TYPE/ RH/SC REEN exp date 2024 23:59 Not Available [facility] (Lab) [address] [facility], [place], [address], 09/05/2024 20:42:03 09/04/19 25 09/04/2024 RPR SCREE N, REFLE X TITER /CONF IRMAT ION RPR screen Nonrea ctive nonrea ctive Not Available [facility] (Lab) [address] [place], [address], 09/05/2024 20:42:03 10/30/19 25 10/29/2024 TSH, REFLE X FREE T4 TSH 3.33 uIU/m L 0.30-5 .33 Not Available [facility] (Lab) [address] [place], [address], 10/30/2024 07:42:18 12/18/19 25 12/17/2024 HEMOG LOBIN (HGB) HGB 12.9 g/dL (based on docume nted legal sex) 11.6-1 5.4 Not Available [facility] (Lab) [address] [place], [address], 12/18/2024 14:09:50 12/18/19 25 12/17/2024 HEMAT OCRIT (HCT) HCT 38.3 % (based on docume nted legal sex) 34.0-4 5.0 Not Available [facility] (Lab) [address] [facility], [place], [address], 12/18/2024 14:09:50 12/18/19 25 12/17/2024 GTT - GESTA JENNA L SCREE N, ACOG OB glucose, 1 hour screen 94 mg/dL 70-135 Not Available [facility] (Lab) [address] [facility], [place], [address], 12/18/2024 14:09:51 12/18/19 25 12/17/2024 HIV 1/2 ANTIG EN/AN TIBOD Y, REFLE X CONFI RMATI ON HIV antigen/anti body Nonrea ctive nonrea ctive HIV-1 antig en and HIV-1 /HIV- 2 antib odies were not detec pola. No labor atory evide nce of HIV infec tion. Not Available [facility] (Lab) [address] [facility], [place], [address], 12/18/2024 14:09:52 12/18/19 25 12/17/2024 RPR SCREE N, REFLE X TITER /CONF IRMAT ION RPR qualitative Nonrea ctive nonrea ctive Not Available [facility] (Lab) [address] [facility], [place], [address], 12/18/2024 14:09:52 01/16/20 25 01/15/2025 CMP/C BC/UR IC ACID uric acid 3.6 mg/dL 2.3-6. 6 Not Available [facility] (Lab) [address] [place], [address], 01/16/2025 03:20:09 01/16/20 25 01/15/2025 CMP/C BC/UR IC ACID sodium 136 mmol/ L 133-14 6 Not Available [facility] (Lab) [address] [facility], [place], [address], 01/16/2025 03:20:09 01/16/20 25 01/15/2025 CMP/C BC/UR IC ACID potassium 4.2 mmol/ L 3.5-5. 1 Not Available [facility] (Lab) [address] [facility], [place], [address], 01/16/2025 03:20:09 01/16/20 25 01/15/2025 CMP/C BC/UR IC ACID chloride 102 mmol/ L 98-107 Not Available [facility] (Lab) [address] [facility], [place], [address], 01/16/2025 03:20:09 01/16/20 25 01/15/2025 CMP/C BC/UR IC ACID carbon dioxide 29 mmol/ L 21-31 Not Available [facility] (Lab) [address] [facility], [place], [address], 01/16/2025 03:20:09 01/16/20 25 01/15/2025 CMP/C BC/UR IC ACID anion gap 5 mmol/ L 4-13 Not Available [facility] (Lab) [address] [facility], [place], [address], 01/16/2025 03:20:09 01/16/20 25 01/15/2025 CMP/C BC/UR IC ACID blood urea nitrogen 6 mg/dL 7-25 low Not Available [facility] (Lab) [address] [facility], [place], [address], 01/16/2025 03:20:09 01/16/20 25 01/15/2025 CMP/C BC/UR IC ACID creatinine 0.33 mg/dL 0.60-1 .30 low Not Available [facility] (Lab) [address] [place], [address], 01/16/2025 03:20:09 01/16/20 25 01/15/2025 CMP/C BC/UR IC ACID egfrcr (CKD-epi 2020) >90 mL/mi n/1.7 3_m2 >=60 Not Available [facility] (Lab) [address], [place], [address], 01/16/2025 03:20:09 01/16/20 25 01/15/2025 CMP/C BC/UR IC ACID calcium 9.3 mg/dL 8.3-10 .5 Not Available [facility] (Lab) [address], [place], [address], 01/16/2025 03:20:09 01/16/2001/15/2025 CMP/C BC/UR IC ACID glucose 66 mg/dL 70-100 low Not Available [facility] (Lab) [address], [place], [address], 01/16/2025 03:20:09 01/16/20 25 01/15/2025 CMP/C BC/UR IC ACID protein, total 6.5 g/dL 6.4-8. 3 Not Available [facility] (Lab) [address], [place], [address], 01/16/2025 03:20:09 01/16/20 25 01/15/2025 CMP/C BC/UR IC ACID albumin 3.8 g/dL 3.5-5. 0 Not Available [facility] (Lab) [address], [place], [address], 01/16/2025 03:20:09 01/16/20 25 01/15/2025 CMP/C BC/UR IC ACID ALT 14 units /L 9-43 Not Available [facility] (Lab) [address], [place], [address], 01/16/2025 03:20:09 01/16/20 25 01/15/2025 CMP/C BC/UR IC ACID alkaline phosphatase 72 units /L 34-104 Not Available [facility] (Lab) [address], [place], [address], 01/16/2025 03:20:09 01/16/2001/15/2025 CMP/C BC/UR IC ACID AST 12 units /L 13-39 low Not Available [facility] (Lab) [address] [facility], [place], [address], 01/16/2025 03:20:09 01/16/2001/15/2025 CMP/C BC/UR IC ACID bilirubin, total 0.3 mg/dL 0.2-1. 2 Not Available [facility] (Lab) [address] [place], [address], 01/16/2025 03:20:09 01/16/2001/15/2025 CMP/C BC/UR IC ACID WBC 7.9 10'3/ uL 3.5-10 .5 Not Available [facility] (Lab) [address] [facility], [place], [address], 01/16/2025 03:20:09 01/16/2001/15/2025 CMP/C BC/UR IC ACID RBC 4.52 10'6/ uL (based on docume nted legal sex) 3.80-5 .20 Not Available [facility] (Lab) [address] [place], [address], 01/16/2025 03:20:09 01/16/2001/15/2025 CMP/C BC/UR IC ACID HGB 13.0 g/dL (based on docume nted legal sex) 11.6-1 5.4 Not Available [facility] (Lab) [address] [place], [address], 01/16/2025 03:20:09 01/16/2001/15/2025 CMP/C BC/UR IC ACID HCT 39.9 % (based on docume nted legal sex) 34.0-4 5.0 Not Available [facility] (Lab) [address] [place], [address], 01/16/2025 03:20:09 01/16/20 25 01/15/2025 CMP/C BC/UR IC ACID MCV 88.3 fL 80.0-9 9.0 Not Available [facility] (Lab) [address] [facility], [place], [address], 01/16/2025 03:20:09 01/16/20 25 01/15/2025 CMP/C BC/UR IC ACID MCH 28.8 pg 27.0-3 4.0 Not Available [facility] (Lab) [address] [facility], [place], [address], 01/16/2025 03:20:09 01/16/20 25 01/15/2025 CMP/C BC/UR IC ACID MCHC 32.6 g/dL 32.0-3 5.5 Not Available [facility] (Lab) [address] [facility], [place], [address], 01/16/2025 03:20:09 01/16/20 25 01/15/2025 CMP/C BC/UR IC ACID RDW 14.2 % 11.0-1 5.0 Not Available [facility] (Lab) [address] [facility], [place], [address], 01/16/2025 03:20:09 01/16/20 25 01/15/2025 CMP/C BC/UR IC ACID plt 152 10'3/ uL 150-40 0 Not Available [facility] (Lab) [address] [facility], [place], [address], 01/16/2025 03:20:09 01/16/20 25 01/15/2025 CMP/C BC/UR IC ACID MPV 12.4 fL 8.8-12 .1 high Not Available [facility] (Lab) [address] [facility], [place], [address], 01/16/2025 03:20:09 01/16/20 25 01/15/2025 CMP/C BC/UR IC ACID NRBC's 0.0 % 0.0 Not Available [facility] (Lab) [address] [facility], [place], [address], 01/16/2025 03:20:09 01/16/20 25 01/15/2025 CMP/C BC/UR IC ACID absolute NRBCs 0.0 10'3/ uL no refere nce range establ ished Not Available [facility] (Lab) [address] [facility], [place], [address], 01/16/2025 03:20:09 01/16/20 25 01/15/2025 CMP/C BC/UR IC ACID neutrophils 70.5 % 34.0-7 3.0 Not Available [facility] (Lab) [address] [facility], [place], [address], 01/16/2025 03:20:09 01/16/20 25 01/15/2025 CMP/C BC/UR IC ACID lymphocytes 18.6 % 15.0-5 0.0 Not Available [facility] (Lab) [address] [facility], [place], [address], 01/16/2025 03:20:09 01/16/2001/15/2025 CMP/C BC/UR IC ACID monocytes 8.6 % 1.0-15 .0 Not Available [facility] (Lab) [address] [place], [address], 01/16/2025 03:20:09 01/16/2001/15/2025 CMP/C BC/UR IC ACID eosinophils 1.5 % 0.0-8. 0 Not Available [facility] (Lab) [address] [place], [address], 01/16/2025 03:20:09 01/16/2001/15/2025 CMP/C BC/UR IC ACID basophils 0.4 % 0.0-2. 0 Not Available [facility] (Lab) [address] [place], [address], 01/16/2025 03:20:09 01/16/20 25 01/15/2025 CMP/C BC/UR [...] separ ately if prese nt. Not Available [facility] (Lab) [address] [facility], [place], [address], 01/16/2025 03:20:09 01/16/20 25 01/15/2025 CMP/C BC/UR IC ACID absolute neutrophils 5.6 10'3/ uL 1.5-8. 0 Not Available [facility] (Lab) [address] [facility], [place], [address], 01/16/2025 03:20:09 01/16/20 25 01/15/2025 CMP/C BC/UR IC ACID absolute lymphocytes 1.5 10'3/ uL 1.0-4. 0 Not Available [facility] (Lab) [address] [facility], [place], [address], 01/16/2025 03:20:09 01/16/20 25 01/15/2025 CMP/C BC/UR IC ACID absolute monocytes 0.7 10'3/ uL 0.2-1. 0 Not Available [facility] (Lab) [address] [facility], [place], [address], 01/16/2025 03:20:09 01/16/20 25 01/15/2025 CMP/C BC/UR IC ACID absolute eosinophils 0.1 10'3/ uL 0.0-0. 6 Not Available [facility] (Lab) [address] [facility], [place], [address], 01/16/2025 03:20:09 01/16/20 25 01/15/2025 CMP/C BC/UR IC ACID absolute basophils 0.0 10'3/ uL 0.0-0. 3 Not Available [facility] (Lab) [address] [place], [address], 01/16/2025 03:20:09 01/16/20 25 01/15/2025 CMP/C BC/UR IC ACID absolute immature granulocytes 0.0 10'3/ uL 0.00-0 .10 Refer ence range s for nonbi nary/ inter sex or unspe cifie d gende r patie nts have not been estab lishe d. [facility]as e [facility] for range s estab lishe d for cisge nder patie nts and evalu ate in the clini [place] xt of the indiv idual patie nt: https ://stacy baird book. nm.or g/gen derx Not Available [facility] (Lab) [address], [place], [address], 01/16/2025 03:20:09 02/06/20 25 02/05/2025 CULTU RE: GROUP B STREP SCREE N, REFLE X SUSCE PTIBI LITY result report SEE RESULT S BELOW abnormal Test: Cultu re: Group B Strep , Refle x Susce ptibi lity ([facility]/ [facility] ) Speci men Sourc e: Vagin a/Rec tano Speci men Type: Vagin al/Re ctal Speci men Date: 025 1003 Resul t Date: 2024 1415 Resul t Statu s: Final resul t Abnor mal: Yes Resul ar Lab: [facility] [address] [facility] [facility] [address] Tel: CULTU RE ----- ----- ----- --- [...] for anaph ylaxi s. Jorge ptibi harini roberts is not neces librado for these drugs . Not Available [facility] (Lab) [address], [place], [address], 02/10/2025 15:18:57 10/10/19 25 10/09/2024 US, breas t, unila teral No observ ation record ed. [facility] (Radiology) [address], [place], [address], 10/09/2024 17:22:59 10/30/19 25 10/29/2024 US, obste tric, 2nd or 3rd trime ster No observ ation record ed. clifford [place] [address], [place], [address], 10/29/2024 14:13:54 10/30/19 25 10/29/2024 US, obste tric, 2nd or 3rd trime ster No observ ation record ed. [email or web address] [address] [address], [place], [address], 10/31/2024 20:03:53 11/20/19 25 11/19/2024 [place], obste tric, follo w-up No observ ation record ed. [email or web address] [place] [address], [place], [address], 11/19/2024 14:47:04 11/20/19 25 11/19/2024 [place], obste tric, follo w-up No observ ation record ed. BAM [place] [address], [place], [address], 12/04/2024 09:14:42 12/18/19 25 12/17/2024 [place], obste tric, follo w-up No observ ation record ed. [place] [address], [place], [address], 12/19/2024 17:30:07 12/18/19 25 12/17/2024 [place], obste tric, follo w-up No observ ation record ed. [email or web address] [place] [address], [place], [address], 12/26/2024 12:13:51 12/31/19 25 12/30/2024 [place], obste tric, limit ed No observ ation record ed. [email or web address] [place] [address], [place], [address], 12/30/2024 18:41:24 12/31/19 25 12/30/2024 [place], obste tric, follo w-up No observ ation record ed. [email or web address] [place] [address], [place], [address], 01/06/2025 18:01:25 01/14/20 25 01/13/2025 [place], obste tric, follo w-up No observ ation record ed. [email or web address] [place] [address], [place], [address], 01/13/2025 17:53:49 01/14/20 25 01/13/2025 US, obste tric, follo w-up No observ ation record ed. [email or web address], [place], [address], 01/16/2025 10:30:30 02/09/20 25 02/08/2025 imagi ng/di agnos tic resul t No observ ation record ed. [facility] [address], [place], [address], 02/09/2025 18:44:19 02/14/20 25 02/13/2025 US, obste tric, follo w-up No observ ation record ed. [facility] [address], [place], [address], 02/13/2025 16:49:31 02/14/20 25 02/13/2025 US, obste tric, follo w-up No observ ation record ed. [email or web address] [address], [place], [address], 02/16/2025 21:37:54 02/14/20 25 02/13/2025 imagi ng/di agnos tic resul t No observ ation record ed. BAM Not Available 2024 17:30:41 Result Notes None recorded. Problems Name Problem SNOMED Code Status Onset Date Resolution Date Notes Provider Name and Address Organization Details Recorded Time Past pregnanc y history of pre-ecla mpsia 26496231980 9100 Active without severe features, delivered at 37 weeks; ASA ppx URSULA TEJEDA MD [address], [place], [address], [facility] 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 5 20:03:12 Bicornua te uterus 45148942 Active serial growth Uyen lei, [facility] 5 20:03:18 Bicornua te uterus 66015542 Active serial growth Uyen lei, [facility] 5 20:03:19 Pregnanc y 60614155 Active 2024 Rayna lei, [facility] 15:20:50 Mild pre-ecla mpsia 95574091 Active 2024 PC ratio 4.06 at 36 weeks induction 02/18 URSULA TEJEDA MD [address], [place], [address], [facility] 12:14:04 Problem Notes None recorded. Medical [...] Updated DateTime 02/17/2025 167.64 cm 35.8 kg/m2 197563.5 1 g 146/90 mm[Hg] 150/97 mm[Hg] Le Mccollum [facility] 12:01:45 Social History Question Answer Notes LastModified by Organizat ion Details LastModified Time Tobacco Smoking Status Former Smoker Rayna Freida lei, [facility] 08/07/2024 11:00:58 Do You Have An Advance Directive? No [email or web address] Information not available 10/01/2024 Are You Blind Or Do You Have Difficulty Seeing? No [email or web address] Information not available 08/07/2024 What Is Your Level Of Caffeine Consumption? Occasional [email or web address] Information not available 10/01/2024 How Much Tobacco Do You Chew? None Information not available 10/01/2024 In The 14 Days Before Symptom Onset, Have You Had Close Contact With A Laboratory-confir med COVID-19 While That Case Was Ill? No [email or web address] Information not available 08/07/2024 In The 14 Days Before Symptom Onset, Have You Had Close Contact With A Person Who Is Under Investigation For COVID-19 While That Person Was Ill? No [email or web address] Information not available 08/07/2024 Have You Been To An Area Known To Be High Risk For COVID-19? No [email or web address] Information not available 08/07/2024 Are You Deaf Or Do You Have Serious Difficulty Hearing? No [email or web address] Information not available 08/07/2024 What Type Of Diet Are You Following? REGULAR [email or web address] Information not available 10/01/2024 What Is The Highest Grade Or Level Of School You Have Completed Or The Highest Degree You Have Received? [id number] [email or web address] Information not available 10/01/2024 Are There Any Guns Present In Your Home? No [email or web address] Information not available 10/01/2024 Do You Use Protection During Sex? No Information not available 10/01/2024 Do You Use Your Seat Belt Or Car Seat Routinely? Yes [email or web address] Information not available 08/07/2024 Do You Have Smoke And Carbon Monoxide Detectors In Your Home? Yes [email or web address] Information not available 08/07/2024 How Much Tobacco Do You Smoke? No [email or web address] Information not available 10/01/2024 Do You Use Sunscreen Routinely? Yes Information not available 08/07/2024 Have You Used IV Drugs? No [email or web address] Information not available 10/01/2024 Do You Have Difficulty Walking Or Climbing Stairs? No [email or web address] Information not available 08/07/2024 Sex: Unknown Functional Status Question Answer Note LastModified by Organizat ion Details LastModified Time Do you use any illicit or recreational drugs? No Information not available 08/07/2024 What is your level of alcohol consumption? None [email or web address] Information not available 10/01/2024 Are you able to walk? YESWOREST [email or web address] Information not available 08/07/2024 Are you able to care for yourself? Yes [email or web address] Information n ot available 08/07/2024 What is your occupation? [employer] [email or web address] Information not available 10/01/2024 Do you have difficulty dressing or bathing? No [email or web address] Information not available 08/07/2024 What is your exercise level? Moderate [email or web address] Information not available 10/01/2024 Mental Status Question Answer Note LastModified by Organization D etails LastModified Time Do you feel stressed (tense, restless, nervous, or anxious, or unable to sleep at night)? [id number] [email or web address] Information not available 10/01/2024 Family History Relationship Description Onset Age of this Age Resolved Age Notes LastModified by Organization Details LastModified Time Mother Hypertensive disorder [email or web address] Not available 2024 10:34:19 Maternal Grandfather Malignant [...] SNOMED-CT Code Diagnosis ICD10 Code Diagnosis Note [id number] URSULA TEJEDA MD [place] [address],[place] [address] 01/22/2025 09:05:42 01/22/2025 14:47:33 Premature uterine contraction 439487827 O47.00 [id number] URSULA TEJEDA MD [place] [address],[place] [address] 02/05/2025 10:07:57 02/05/2025 10:52:28 Marginal insertion of umbilical cord 66173707 O43.129 Gestation period, 35 weeks 22910364 Z3A.35 [id number] Abimael Godwin MD [place] [address],[place] [address] 02/13/2025 10:22:28 02/13/2025 11:19:51 Anomaly of placenta 32032411 O43.103 O34.03 O99.283 Z3A.36 [id number] Abimael Godwin MD [place] [address],[place] [address] 02/13/2025 10:22:54 02/17/2025 09:38:59 care status 045810967 Z34.83 [id number] URSULA TEJEDA MD [place] [address],[place] [address] 02/17/2025 11:39:37 02/17/2025 12:18:01 Mild pre-eclampsia 18426388 O14.03 - meet criteria by PC ratio 02/12- MIL at 37 weeks on 02/18 Bicornuate uterus 250489 03 Q51.3 Marginal i nsertion of umbilical cord 91560261 O43.129 Hypothyroi dism in 904830621 E03.9 - levothyrox ine 25mcg Past pregn elizabeth history of pre-eclampsia 1678856830 46352 Z87.59 - without severe features, MIL at 37 weeks- discussed ASA 81mg daily for preeclamps ia PPX Gestation period, 36 weeks 98567271 Z3A.36 - GBS positive- continue [facility] Health Concerns Section Related Observation LastModified by Organization Detai ls LastModified Time None Recorded Concern Status LastModified by Organization Details LastModified Time None Recorded Payers Encounter Date Sequence Insurance Name Policy Number Policy Le Covered Member ID Le Member ID Guarantor Name 02/17/2025 1 [place] [id number] Ensign [id number] Ensign 02/17/2025 2 [place] [facility] A[facility] Ensign [id number] [facility] Episode Ob Episode Information Episode Created Date Number of Fetuses Patient Bloodtype Patient rh Status Prepregnancy Weight lbs Domestic Partner Domestic Partner Phone Father Name Carpenter Mate Status 09/04/19 25 1 O Positive 182 Myke Kindern ay OPEN Fetus Data First Name Last Name Admitted to NICU Weight (g) Sex Living Outcome Pediatric Complications Fetus ID Race Codes Race Delivery Type [id number] Problems Problem Notes Problem Name Start Date End Date Resolution Snomed Code Not e Hypothyroidism in 142184841 25mcg Levothyro xine repeat labs 4wks Mild pre-eclampsia 02/17/2025 48468528 PC ratio 4.06 at 36 weeksinduction 02/18 Marginal insertion of umbilical cord 84297644 serial hemalatha wth Bicornuate uterus 69739194 se rial growth Past history of pre-eclampsia 660388201257038 without sev ere features, delivered at 37 [...] Date Ultra Sound Latest Days Gestation 0 [email or web address] 09/04/2024 03/11/20 25 0 Pre- Flowsheet Flowsheet Date 09/04/2024 Dasilva Score Blood Edema Fundus Height Fundus Units Glucose Ketones Leukocytes Nitrite Labor Signs Protein Cervic Dilation Cervic Effacement Cervic Station Type Weight in lbs Pre/Post Dialysis Refused Weight 182.485434001719 BP Diastolic BP Location Tested BP Systolic BP Type 82 L arm 139 sitting Fetus Heart Rate Present A Present Fetus Movement Comments Patient presents to [facility] care. Hx of preeclampsia without severe [...] Weight in lbs Pre/Post Dialysis Refused Weight 185.363998278802 BP Diastolic BP Location Tested BP Systolic [...] Type Weight in lbs Pre/Post Dialysis Refused 187.868015517713 BP Diastolic BP Location Tested BP Systolic [...] Weight in lbs Pre/Post Dialysis Refused Weight 198.039927405686 BP Diastolic BP Location Tested BP Systolic [...] Type Weight in lbs Pre/Post Dialysis Refused 201.520227020461 BP Diastolic BP Location Tested BP Systolic [...] Type Weight in lbs Pre/Post Dialysis Refused 209.286932666938 BP Diastolic BP Location Tested BP Systolic [...] Weight in lbs Pre/Post Dialysis Refused Weight 210.362927641845 BP Diastolic BP Location Tested BP Systolic [...] Type Weight in lbs Pre/Post Dialysis Refused 214.629131949457 BP Diastolic BP Location Tested BP Systolic [...] Weight in lbs Pre/Post Dialysis Refused Weight 219.634064453418 BP Diastolic BP Location Tested BP Systolic [...] Type Weight in lbs Pre/Post Dialysis Refused 224.440047722459 BP Diastolic BP Location Tested BP Systolic [...] Weight in lbs Pre/Post Dialysis Refused Weight 222.2412830267 BP Diastolic BP Location Tested BP Systolic [...]
[2025-02-18 06:53] LABS: Hematocrit 37.6 % (37.0-47.0); Hemoglobin 12.2 g/dL (12.0-15.0); Immature Granulocyte Percent A 0.4 % (0-0.5); Lymphocytes Absolute Auto 1.37 K/mm3 (0.9-3.2); Mean Corpuscular HGB Conc 32.4 g/dl (32-36); Mean Corpuscular Hemoglobin 27.7 pg (26-34); Mean Corpuscular Volume 85.3 fl (80-100); Nucleated Red Blood Cells Absolute Auto 0.000 K/mm3 (0.0-0.012); Nucleated Red Blood Cells Perc 0.0 % (0.0-0.2); Platelet Count Result 150 k/mm3 (150-375); Red Blood Count 4.41 M/mm3 (4.2-5.4); White Blood Count 7.1 K/mm3 (4.5-10.0)
[2025-02-18] MEDS: LACTATED RINGERS 1,000 ML 125 ML IV CONT ×2 (07:10→12:30)
[2025-02-18 07:11] LABS: Alanine Aminotransferase 19 U/L (6-35); Albumin Level 3.5 g/dL (3.5-5.1); Alkaline Phosphatase 111 U/L (38-126); Anion Gap 9 mmol/L (4-12); Aspartate Amino Transferase 25 U/L (14-36); Bilirubin,Total 0.2 mg/dL (0.2-1.3); Blood Urea Nitrogen 6 mg/dL (7-17); Calcium 9.4 mg/dL (8.4-10.2); Carbon Dioxide 20 mmol/L (22-30); Chloride 104 mmol/L (98-107); Estimated Glomerular Filt Rate > 60; Glucose 116 mg/dL (65-110); Potassium 3.7 mmol/L (3.4-5.0); Sodium 133 mmol/L (137-145); Total Protein 6.6 g/dL (6.3-8.2); Uric Acid 5.1 mg/dL (2.5-7.5)
[2025-02-18] MEDS: AMPICILLIN SODIUM 2 GM in SODIUM CHLORIDE 0.9% IV 100 ML 200 ML IVPB (07:12)
--- NOTE | 2025-02-18 07:28 | LDADM ---
This patient, Elizabeth Hassan, was admitted to Labor/Delivery/Recovery 108 on 02/18/25 at 05:59. Plans for labor, pain management and were discussed with patient. Patient/family oriented to hospital policies and general routines including ID bracelet, bed and alarms, visiting hours, pain management, procedures, bathroom and other care routines, personal items, smoking policy, room service/diet and guest tray routines, security routines, and visiting hours. Patient/Family are encouraged to report perceived risks to care and to ask questions if they do not understand what they are told or what they should do. See OBIX for further documentation.
[2025-02-18 07:42] LABS: Syphilis IgG/IgM Antibody Non-Reactive (Nonreactive)
--- NOTE | 2025-02-18 10:48 | PM.IMHP ---
H&P: HPI History of Present Illness Date/Time: 02/18/25 10:48 Chief Complaint: preeclampsia without severe features Narrative: Patient is a 24 year old female at 37 weeks gestation who presents for induction of labor for preeclampsia without severe features. She was found to have significant proteinuria at 36 weeks along with mild range blood pressures. Bloodwork has otherwise been normal. She denies headaches, vision changes, chest pain, dyspnea, RUQ pain or epigastric pain. Good movement. No bleeding or leakage of fluid. Review of Systems Review of Systems: All systems reviewed & are unremarkable except as noted in HPI and below [email or web address] Family History Family History Mother Hypertension Epilepsy Father AML (acute myeloblastic leukemia) Social History Social History Smoking status: Former smoker Smoking end date: 03/31/24 Substance use: never Do You Feel Safe in your Home?: Yes Lack of Transportation: No Lack of Food: Never True Current Housing: I Have Housing Concerned About Future Housing: No Difficulty Paying Gas/Electric Bills: No Difficulty Paying for Meds: No Currently Unemployed: No Education: Trade/Vocational Certificate Difficulty w/ Childcare or Family Care: No Spiritual care concerns: No Meds Home Medications and Allergies Home Medications ?Medication ?Instructions ?Recorded ?Confirmed ?Type levothyroxine 25 mcg tablet 25 mcg PO DAILY 02/13/25 02/18/25 History vits no.130-ferrous fum 1 tablet PO DAILY 02/13/25 02/18/25 History 27 mg iron-folic acid 800 mcg tablet ( Vitamin) Allergies Allergy/AdvReac Type Severity Reaction Status Date / Time No Known Allergies Allergy Verified 02/13/25 11:47 Vital Signs Vital Signs - 24 hr 02/18/25 06:44 02/18/25 06:45 02/18/25 07:01 Temperature 99.1 F Pulse Rate 86 98 Blood Pressure 145/81 H 138/89 Oxygen Delivery 02/18/25 07:25 02/18/25 08:01 02/18/25 08:31 Temperature Pulse Rate 82 73 Blood Pressure 142/81 H 144/76 H Oxygen Delivery Room Air 02/18/25 09:01 02/18/25 09:31 02/18/25 10:01 Temperature Pulse Rate 82 88 86 Blood Pressure 135/85 84/50 L 129/71 Oxygen Delivery 02/18/25 10:30 Temperature 98.6 F Pulse Rate Blood Pressure Oxygen Delivery Exam Const: General: comfortable and no acute distress Eyes: General: appearance normal, both eyes and all related structures Resp: Effort & Inspection: normal respiratory effort Cardio: Rate: regular rate H&P: Results Labs Labs: Short CBC 02/18/25 Range/Units 06:38 WBC 7.1 (4.5-10.0) K/mm3 Hgb 12.2 (12.0-15.0) g/dL Hct 37.6 (37.0-47.0) % Plt Count 150 (150-375) k/mm3 BMP 02/18/25 06:38 Sodium 133 L Potassium 3.7 Chloride 104 Carbon Dioxide 20 L BUN 6 L Creatinine 0.39 L Glucose 116 H Calcium 9.4 Liver Function 02/18/25 Range/Units 06:38 Total Bilirubin 0.2 (0.2-1.3) mg/dL AST 25 (14-36) U/L ALT 19 (6-35) U/L Alkaline Phosphatase 111 (38-126) U/L Albumin 3.5 (3.5-5.1) g/dL Assessment and Plan Assessment and plan (1) Pre-eclampsia, mild, third trimester: Code(s): O14.03 - Mild to moderate pre-eclampsia, third trimester Status: Acute Assessment and Plan: - asymptomatic - BP mild range - labs wnl aside from diagnostic proteinuria - monitor for development of severe features (2) Encounter for planned induction of labor: Code(s): Z34.90 - Encounter for supervision of normal , unspecified, unspecified trimester Status: Acute Assessment and Plan: - SVE1/50/-3 on admission - cytotec 50mcg buccal - FHR category I
[2025-02-18] MEDS: AMPICILLIN SODIUM 1 GM in SODIUM CHLORIDE 0.9% IV 50 ML 100 ML IVPB ×2 (11:08→15:29)
--- NOTE | 2025-02-18 12:37 | WPDANESEPP ---
Anes - Eval Pre Procedure Procedure: Labor epidural Date/Time: 02/18/25 12:37 Surgeon: Jamil Preop Diagnosis: Pain during labor Pre Op Diagnosis: IOL Patient Data Age: 24 Gender: F Height: Weight: Last Vital Signs Temp 37.0 C 02/18/25 10:30 Pulse 91 02/18/25 12:36 BP 134/70 02/18/25 12:36 Pulse Ox 98 02/18/25 12:34 O2 Del Method Room Air 02/18/25 07:25 Allergies Allergy/AdvReac Type Severity Reaction Status Date / Time No Known Allergies Allergy Verified 02/13/25 11:47 Home Medications ?Medication ?Instructions ?Recorded ?Confirmed ?Type levothyroxine 25 mcg tablet 25 mcg PO DAILY 02/13/25 02/18/25 History vits no.130-ferrous fum 1 tablet PO DAILY 02/13/25 02/18/25 History 27 mg iron-folic acid 800 mcg tablet ( Vitamin) Laboratory Tests 02/18/25 02/18/25 06:38 06:38 WBC 7.1 K/mm3 (4.5-10.0) RBC 4.41 M/mm3 (4.2-5.4) Hgb 12.2 g/dL (12.0-15.0) Hct 37.6 % (37.0-47.0) MCV 85.3 fl (80-100) MCH 27.7 pg (26-34) MCHC 32.4 g/dl (32-36) RDW 14.6 H % (11.5-14.5) Plt Count 150 k/mm3 (150-375) MPV 12.7 H fl (7.4-10.4) Immature Gran % (Auto) 0.4 % (0-0.5) Neut % (Auto) 71.1 % (45.5-73.1) Lymph % (Auto) 19.2 % (18.3-44.2) Deuel % (Auto) 7.2 % (2.6-8.5) Eos % (Auto) 1.5 % (0-4.4) Baso % (Auto) 0.6 % (0.2-1.2) Lymph # (Auto) 1.37 K/mm3 (0.9-3.2) Deuel # (Auto) 0.5 K/mm3 (0.1-0.6) Eos # (Auto) 0.1 K/mm3 (0-0.3) Baso # (Auto) 0.0 K/mm3 (0.0-0.1) Abs Immat Gran (auto) 0.03 K/mm3 (0.00-0.031) Absolute Neuts (auto) 5.1 K/mm3 (1.3-6.7) Absolute Nucleated RBC 0.000 K/mm3 (0.0-0.012) Nucleated RBC % 0.0 % (0.0-0.2) Sodium 133 L mmol/L (137-145) Potassium 3.7 mmol/L (3.4-5.0) Chloride 104 mmol/L (98-107) Carbon Dioxide 20 L mmol/L (22-30) Anion Gap 9 mmol/L (4-12) BUN 6 L mg/dL (7-17) Creatinine 0.39 L mg/dL (0.7-1.0) Estim Creat Clear Calc Not Reportable Estimated GFR > 60 (59 - ) Glucose 116 H mg/dL (65-110) Uric Acid Cancelled 5.1 mg/dL (2.5-7.5) Calcium 9.4 mg/dL (8.4-10.2) Total Bilirubin 0.2 mg/dL (0.2-1.3) AST 25 U/L (14-36) ALT 19 U/L (6-35) Alkaline Phosphatase 111 U/L (38-126) Total Protein 6.6 g/dL (6.3-8.2) Albumin 3.5 g/dL (3.5-5.1) Syphilis IgG/IgM Ab Non-reactive (Nonreactive) Blood Type O Positive Antibody Screen Negative Patient hx anesthesia problems: none Family hx anesthesia problems: none Results Review: All pre-operative results and documents have been reviewed as part of the pre-operative evaluation. [facility] Family History Family History Mother Hypertension Epilepsy Father AML (acute myeloblastic leukemia) Social History Social History Smoking status: Former smoker Smoking end date: 03/31/24 Substance use: never Do You Feel Safe in your Home?: Yes Lack of Transportation: No Lack of Food: Never True Current Housing: I Have Housing Concerned About Future Housing: No Difficulty Paying Gas/Electric Bills: No Difficulty Paying for Meds: No Currently Unemployed: No Education: Trade/Vocational Certificate Difficulty w/ Childcare or Family Care: No Spiritual care concerns: No Exam Day of Procedure 02/18/25 12:37 Patient weight: obese Heart: regular rate and rhythm Lungs: clear to auscultation Airway: Mallampati scale class II Neurological: alert and oriented
--- NOTE | 2025-02-18 13:16 | PM.OBPNLAB ---
Pain Control Date/time seen: 02/18/25 13:16 Pain control: epidural Pelvic Exam Dilation (cm): 3 Effacement (%): 75 station: -2 Amniotic membrane status: Ruptured (large amount of clear fluid) Status status: Category l Assessment and Plan Assessment: induction ongoing Plan: continuous present management Comments: IUPC placed with AROM
[2025-02-18] MEDS: OXYTOCIN 30 UNITS/NS 500 ML 30 UNITS/500 ML BAG 999 UNITS IV CONT (17:42)
--- NOTE | 2025-02-18 17:57 | PM.OBPRVD ---
OB - Vaginal Delivery Note Procedure Delivery date: 02/18/25 Events: Preeclampsia w/o severe features Induction method: Per Misoprostol Protocol Delivery augmentation: Rupture of Membranes and Pitocin Delivery monitor: External FHT and Internal Uterine Route of delivery: Episiotomy description: None Laceration Description: None Specimen: No Quantitative Blood Loss (ml): 50 Anesthesia type: Epidural Disposition: Floor Complications: No immediate complications Narrative: See H&P and notes for details on patient's admission and labor. She progressed to complete cervical dilation and at the appropriate time began pushing. With adequate expulsive efforts by the mother, the baby's head was delivered without difficulty. Nuchal cord was present x1 and was easily reduced. The baby's right shoulder was anterior and delivered under the pubic symphysis without difficulty. The posterior shoulder and the rest of the baby delivered without difficulty. The umbilical cord was doubly clamped and cut after 60 seconds of delayed cord clamping. Care of the infant was then assumed by the nursing staff. [place] Baby Date of : 02/18/25 Time of : 17:40 Gestational Age by Date: 37 gender: Female presentation: compound (vertex with left hand) position: Right Occiput Anterior Placenta delivery description: Spontaneous Cord Vessel Description: 3 Vessels, Nuchal Cord (x1), Reduced and Delayed Cord Clamping
[2025-02-18] MEDS: OXYTOCIN 30 UNITS/NS 500 ML 30 UNITS/500 ML BAG 125 UNITS IV CONT (18:29)
[2025-02-18] MEDS: IBUPROFEN 600 MG TABLET PO (20:45)
[2025-02-18] MEDS: ACETAMINOPHEN 325 MG TABLET 650 MG PO (20:45)
[2025-02-19 00:51] VITALS: BP 109/64; PULSE 64; RESP 16; TEMP 36.4; O2SAT 97
[2025-02-19 03:00] VITALS: BP 121/79
[2025-02-19] MEDS: ACETAMINOPHEN 325 MG TABLET 650 MG PO ×3 (03:10→16:44)
[2025-02-19 05:12] LABS: Hematocrit 36.5 % (37.0-47.0); Hemoglobin 12.0 g/dL (12.0-15.0)
[2025-02-19] MEDS: LEVOTHYROXINE SODIUM 25 MCG TABLET PO (06:33)
[2025-02-19] MEDS: IBUPROFEN 600 MG TABLET PO ×3 (06:33→19:01)
[2025-02-19] MEDS: DOCUSATE SODIUM 100 MG CAPSULE PO (06:33)
[2025-02-19 07:35] VITALS: BP 114/63; PULSE 88; RESP 18; TEMP 37; O2SAT 96
[2025-02-19] MEDS: MULTIVIT/MIN/PREN/FOL AC/IRON TABLET 1 TAB PO (08:04)
--- NOTE | 2025-02-19 09:45 | PC.NURSE ---
Introductions were made, then consulted with patient to assess needs related to . Mother led the conversation with her?plans to feed?her infant and the?experience so far. Mother plans to exclusively pump and feed pumped breast milk. She has her personal wearable breast pump brought from home ([employer]) and is in 19mm flange. Discussed frequency of pumping and breast milk storage. Mother denies further questions at this time. Hand pump was given to patient per request.
--- NOTE | 2025-02-19 10:29 | P.PNOB_ITS ---
OB - PN: Subj Subjective Date/time seen: 02/19/25 10:29 Interval history: PPD#1 s/p c/b preeclampsia without severe features Pain well controlled Pumping Voiding without issue Ready for discharge today if baby cleared Asymptomatic, no preeclampsia symptoms OB - PN: Obj Data Labs 02/19/25 03:17 02/18/25 06:38 Labs: Laboratory Results - last 24 hr 02/19/25 03:17 Hgb 12.0 Hct 36.5 L OB - PN A/P Assessment and Plan (1) (spontaneous vaginal delivery): Code(s): O80 - Encounter for full-term uncomplicated delivery Status: Acute (2) Pre-eclampsia, mild, third trimester: Code(s): O14.03 - Mild to moderate pre-eclampsia, third trimester Status: Acute Assessment and Plan: - asymptomatic - BP normotensive since delivery - labs wnl Plan day: 1 Plan: routine care and discharge home Time Spent With Patient Time: Total time spent is greater than 50% in coordination of care (as documented) at patient's floor/unit and/or counseling patient: Review of Systems 2 Review of Systems: All systems reviewed & are unremarkable except as noted in HPI and below Exam 2 Const: General: comfortable and no acute distress O rientation/consciousness: patient oriented x3 Resp: Effort & Inspection: normal respiratory effort
--- NOTE | 2025-02-19 10:33 | P.DS_ITS ---
DS: Admitting Diagnosis Discharge Date 02/19/25 Admitting Diagnosis preeclampsia without severe features, medical induction of labor DS: Discharge Diagnosis Discharge Diagnosis (1) Pre-eclampsia, mild, third trimester: Code(s): O14.03 - Mild to moderate pre-eclampsia, third trimester Status: Acute (2) (spontaneous vaginal delivery): Code(s): O80 - Encounter for full-term uncomplicated delivery Status: Acute OB - DS: Summary OB Procedures : None OB Procedures Intrapartum: Spontaneous Vag Delivery OB Procedures: : None Peripartum Data Laceration Description: None Episiotomy description: None Time Spent with Patient Time attestation: Total time spent providing and/or coordinating discharge services: DS: Data Data Completed and Pending Labs on day of discharge: Labs from last 24 hours 02/19/25 03:17 Hgb 12.0 Hct 36.5 L Discharge Plan Discharge Attending physician on discharge: Simeon Negron Discharging Clinician: Simeon Negron Patient Disposition: Home Activity: may shower, as tolerated and pelvic rest Diet: as tolerated Patient Instructions: Antibiotic Form Patient Language: Mongolian Stand Alone Forms: General Discharge Information Follow-up/Referrals: Simeon Negron MD [Physician] - 1 Week Discharge Medications: New ibuprofen 600 mg Tablet 600 mg PO Q6H PRN (Reason: Cramping) Qty: 30 0RF Continued Vitamin 27 mg iron- 800 mcg tablet 1 tablet PO DAILY levothyroxine 25 mcg tablet 25 mcg PO DAILY Date of admission: 02/18/25 05:59 Primary Care Provider: Lauro Brown Admitting Provider: Simeon Negron Attending physician on admission: Simeon Negron Condition: Stable
[2025-02-19 12:17] VITALS: BP 117/66; PULSE 86; RESP 16; TEMP 36.9; O2SAT 98
--- NOTE | 2025-02-19 12:26 | WPDANLDPN2 ---
Anes-Prog Note L&D Date/Time: 02/19/25 12:26 Comfortable throughout: labor and delivery Neuraxial method: epidural Epidural/Spinal procedure site: clean & non-tender Neuro status: Neuro function grossly intact. Cardiovascular status: normal Respiratory status: normal Airway patency: baseline Mental status: baseline Post-Op hydration status: normal Vital Signs: Last Vital Signs Temp 36.9 C 02/19/25 12:17 Pulse 86 02/19/25 12:17 Resp 16 02/19/25 12:17 BP 117/66 02/19/25 12:17 Pulse Ox 98 02/19/25 12:17 O2 Del Method Room Air 02/18/25 07:25 Pain score (VAS): 08/09 I/O: Intake & Output 02/18/25 02/19/25 02/19/25 23:59 07:59 15:59 Intake Total 50 1150 718 Output Total 120 1100 870 Balance -70 50 -152 Post-procedural complaints: none Patient feedback: Patient satisfied with anesthetic care.
[2025-02-19 16:27] VITALS: BP 113/71
[2025-02-19] MEDS: LANOLIN (LANSINOH) 7.5 GM CREAM 1 APPLIC TOPICAL (16:45)
[2025-02-19] MEDS: WITCH HAZEL 40 PADS 1 PAD TOPICAL (16:45)
--- NOTE | 2025-02-19 16:58 | PC.NURSE ---
Called to patient bedside for latch check. Mother states that was refusing the bottle and was rooting at her breast so she decided to allow infant to feed at the breast. Mother was able to independently latch infant and the latch was appropriate. Discussed on demand feeding. Mother understands and will call with any additional questions.
[2025-02-21 11:34] VITALS: BP 134/79; PULSE 83; RESP 18; TEMP 37.1; O2SAT 100
== END 2025-02-19 20:37 | disposition home or self-care (01) | DRG 807 ==
LOC: ANHLDR 06:18 → ANHOB2 20:26
PROVIDERS: Admitting Provider Obstetrics & Gynecology; PCP Family Medicine; Visit Provider Obstetrics & Gynecology
DX: O14.04 Mild to moderate pre-eclampsia, complicating childbirth (principal); Z37.0 Single live birth; Z3A.37 37 weeks gestation of pregnancy; O99.824 Streptococcus B carrier state complicating childbirth; O32.6XX0 Maternal care for compound presentation, not applicable or unspecified; O69.81X0 Labor and delivery complicated by cord around neck, without compression, not applicable or unspecified
CPT/HCPCS: 36415; 80053; 84550; 85014; 85018; 85025; 86593; 86850; 86900; 86901; A9270; J0290; J2590; J2795; J7120